=== PATIENT | male | born 1940 | race Asian ===

== ENCOUNTER → 2017-05-28 | Outpatient (CLI) | payer MEDICARE ==
[~2017-05-28] MED LIST: LISI-362 PO; PRAM15FO9 TP
[2017-05-28 16:08] LABS: PLATELET COUNT, AUTOMATED 124 K/uL (150-450)
[2017-05-28 16:19] LABS: LDL CHOLESTEROL 110 mg/dl
== END ==
LOC: LAB 15:45
PROVIDERS: ATTEND Internal Medicine
DX: Z12.5 Encounter for screening for malignant neoplasm of prostate (principal); I10 Essential (primary) hypertension; K64.9 Unspecified hemorrhoids; K65.2 Spontaneous bacterial peritonitis
CPT/HCPCS: 36415; 81001; 84443; 85025; G0103; 82040; 82247; 82310; 82374; 82435; 82465; 82565; 82947; 83718; 84075; 84132; 84153; 84155; 84295; 84450; 84460; 84478; 84520

== ENCOUNTER 2017-09-13 00:27 | Day surgery (SDC) | payer MEDICARE ==
[~2017-09-13] VITALS: Ht 175.3 cm; Wt 83.0 kg
[~2017-09-13 00:27] MED LIST changes: +DOCU-416 PO; +GOLYTE PO; +HYDR25SU51 RC; +IBUP200C74 PO
[2017-09-13] MEDS ORDERED: AMPICILLIN/SULBACT (*) 3 GM VL 3 GM in NS(*) 0.9% 100 ML BAG 100 ML IVPB ONE (06:45)
[2017-09-13] MEDS ORDERED: LIDOCAINE/SOD BICARB 8.4% SYR ID ONE (06:45)
[2017-09-13] MEDS ORDERED: FAMOTIDINE 20 MG TAB PO ONE (06:45)
[2017-09-13 07:48] VITALS: BP 189/95
[2017-09-13] MEDS: NORMOSOL R SOLN(*) 1000 ML BAG 1,000 ML IV PRN ×2 (07:48→10:52)
[2017-09-13 07:53] LABS: PLATELET COUNT, AUTOMATED 155 K/uL (150-450)
--- NOTE | 2017-09-13 08:13 | EKG ---
FACILITY: [facility] - [place] PATIENT NAME: ISSA HEREDIA : [id number] MR: [id number] V: [id number] EXAM DATE: ORDERING PHYSICIAN: MARTA STRAUSS TECHNOLOGIST: FRANKY Test Reason : PREOP-COLONOSCOPY Blood Pressure : / mmHG Vent. Rate : 062 BPM Atrial Rate : 062 BPM P-R Int : 252 ms QRS Dur : 114 ms QT Int : 430 ms P-R-T Axes : 065 -36 -27 degrees QTc Int : 436 ms Sinus rhythm with 1st degree AV block Left axis deviation Nonspecific T wave abnormality Abnormal ECG No previous ECGs available Confirmed by JAYY FLORES ([id number]) on 09/13/2017 2:58:48 PM Referred By: URIAH Confirmed By:JAYY FLORES
[2017-09-13] MEDS ORDERED: HEPARIN SOD LCK FLSH 100 UN/ML ONE (10:37)
[2017-09-13] MEDS ORDERED: NS(*) 0.9% 10 ML VIAL 20 ML ONE (10:37)
[2017-09-13] MEDS ORDERED: ROPIVACAINE 0.5% 20 ML VIAL ONE (10:37)
[2017-09-13] MEDS ORDERED: PROPOFOL EMUL(*) 10MG/ML 20 ML 40 ML ONE (10:49)
[2017-09-13] MEDS: MIDAZOLAM 2 MG/2 ML VIAL IVP PRN ×2 (10:51→12:18)
--- NOTE | 2017-09-13 13:17 | Short(Outpt) Discharge Summary ---
Discharge Summary Reason for Hosp/Final Diag: (1) Colon cancer metastasized to lung Status: Chronic Hospital Course & Plan: Right IJ Power Port and colonoscopy were completed without problems. (2) Stage IV carcinoma of colon Status: Chronic Departure Discharge to: Home, Self Care Discharge Instructions Home Meds Active Scripts Peg/Electrolytes (GOLYTELY SOLUTION) 4,000 Ml Soln, 1 GAL PO ONCE, #1 GAL 0 Refills Prov:JAYY KRUSE MD 09/08/17 Lisinopril (LISINOPRIL) 10 Mg Tablet, 10 MG PO QDAY, #30 TAB 4 Refills Prov:ASHLEE GORMAN MD 07/10/17 Reported Medications Ibuprofen (ADVIL) 200 Mg Capsule, 1-2 CAP PO Q6-8H Y for PAIN, CAPSULE 07/23/17 Discontinued Scripts Hydrocortisone Acetate (ANUSOL-HC) 25 Mg Supp.rect, 25 MG RC BID Y for pain, bleeding, #30 SUPP.RECT Prov:ASHLEE GORMAN MD 07/10/17 Docusate Sodium (COLACE) 100 Mg Capsule, 100 MG PO DAILY Y for constipation, # 30 CAPSULE Prov:ASHLEE GORMAN MD 07/10/17 Follow up Referrals: Oncology @ [facility] Dr. Phillip Garcia's (Medical Oncologist at the Cancer Center) nurse will call you in the next week or two to schedule a follow up appointment after the biopsy results are completed. Diet: Regular Activity: As Tolerated Special Instructions: You may shower starting on 09/15/17. You may leave the incisions open to air but leave the steristrips in place until they fall off on their own. Do not immerse the incisions for 2 weeks. You may see increased blood from your rectum but this should taper off over the next week. Avoid taking any NSAIDS (nonsteroidal antiinflammatory drugs such as ibuprofen, motrin, advil, aleve, naprosyn, naproxen, etc, tylenol/acetaminophen is OK) for the next week to avoid making the bleeding worse. JAYY KRUSE MD September 13, 2017 13:17
--- NOTE | 2017-09-13 13:25 | Post Operative Progress Note ---
Post Operative Progress Note Date: September 13, 2017 Time: 13:17 Surgeon: Tucker Dictation number: [id number] Anesthesia: LMA by Dr. Ramachandran Pre-Op Diagnosis: Stage IV rectal cancer with liver mets Post-Op Diagnosis: RYAN Findings: Rectal cancer from 10-18cm, 80% circumferential Procedure(s): 1) Right IJ Power Port placement 2) Colonoscopy with biopsies Specimen Removed:(May be N/A): 1) Rectal cancer Complications: None Fluids: See anesthesia record Estimated Blood Loss: Minimal Date OP Note Dictated: September 13, 2017 Time OP Note Dictated: 13:18 JAYY KRUSE MD September 13, 2017 13:25
[2017-09-13] MEDS ORDERED: hydrALAZINE HCL 20 MG/ML VIAL ONE (13:35)
[2017-09-13 14:05] VITALS: BP 186/91
--- NOTE | 2017-09-13 14:12 | RADIOLOGY IMAGING REPORT ---
FACILITY: [facility] PATIENT NAME: Maxwell Schneider : 1940 MR: [id number] V: [id number] EXAM DATE: ORDERING PHYSICIAN: JAYY KRUSE TECHNOLOGIST: Location: [facility] [place] Patient: Maxwell Schneider : 1940 Visit/Account:[id number] Date of Sevice: 09/13/2017 Exam: C-ARM FLUORO PORT/CATH Indication: PORT PLACEMENT, RAD Comparison: None available Findings: Fluoroscopy is provided for right-sided Mediport placement. Right IJ port as catheter tip at the atrial caval junction. Fluoroscopy time 44 seconds DOSE: DAP was 0.47059 mGy*m2. IMPRESSION: Fluoroscopy for Mediport placement Report Dictated By: Charly Michaud at 09/13/2017 2:03 PM Report E-Signed By: Charly Michaud at 09/13/2017 2:06 PM WSN:[email or web address]
[2017-09-13 14:19] VITALS: BP 178/80
[2017-09-13 14:20] VITALS: BP 183/109
--- NOTE | 2017-09-13 14:24 | RADIOLOGY IMAGING REPORT ---
FACILITY: [facility] PATIENT NAME: Maxwell Schneider : 1940 MR: [id number] V: [id number] EXAM DATE: ORDERING PHYSICIAN: JAYY KRUSE TECHNOLOGIST: [place] [facility] [place] Patient: Maxwell Schneider : 1940 Visit/Account:[id number] Date of Sevice: 09/13/2017 CHEST SINGLE AP INDICATION: Right IJ Power port placement COMPARISON: None available FINDINGS: The cardiac silhouette is enlarged. There is no focal infiltrate or lobar consolidation. There is no pneumothorax or pleural effusion. Right-sided Mediport is in place with catheter tip at the atrial caval junction. IMPRESSION: 1. No evidence of complication after right-sided Mediport placement Report Dictated By: Charly Michaud at 09/13/2017 2:18 PM Report E-Signed By: Charly Michaud at 09/13/2017 2:19 PM WSN:[email or web address]
--- NOTE | 2017-09-13 19:16 | OPERATIVE REPORT 1 ---
EVENT DATE: September 13, 2017 SURGEON: Modesto Ceballos MD ANESTHESIOLOGIST: Real Ramachandran MD ANESTHESIA: LMA. PREOPERATIVE DIAGNOSIS Stage IV rectal cancer. POSTOPERATIVE DIAGNOSIS Stage IV rectal cancer. PROCEDURES PERFORMED 1, Right internal jugular PowerPort placement. 2. Colonoscopy with biopsies. COMPLICATIONS None. CONDITION Stable. BLOOD LOSS Minimal. FINDINGS Patient has rectal cancer. It is about 80% circumferential and nonobstructing. It started at 10 cm from the anal verge to 18 cm from the anal verge. INDICATIONS This is a 77-year-old gentleman who initially presented to me with bright red blood per rectum, and we set him up for colonoscopy. He had a family emergency in [facility] and so went over to [facility], and while there, ended up with a colonoscopy where a rectal cancer was found, and a CT scan showed liver mets. He came back to the [facility] for treatment, and I referred him to the oncologist, who requested a PowerPort and wanted a repeat colonoscopy to get more tissue so that we could do some molecular testing of the cancer to help direct his chemotherapy. DESCRIPTION OF PROCEDURE The patient was brought to the operating room and placed supine on the operating table. LMA anesthesia was administered, and his right neck, shoulder , and chest were prepped and draped in a sterile fashion. Timeout was completed. I used the ultrasound probe to identify the right internal jugular vein, and with the patient in Trendelenburg, accessed the vein with a needle. I threaded the wire through the needle and then used the C-arm fluoroscope to identify the wire in the SVC. I then made a stab incision in the skin after anesthetizing the skin with 0.5% ropivacaine plain both in the neck and in the right infraclavicular skin. After making a stab incision in the neck, I made a transverse incision in the infraclavicular skin and dissected through the dermis and subcutaneous fat. I created a pocket for the port caudad to the incision and made sure this was hemostatic and then pulled the catheter with the tunneler from the pocket up to the stab incision in the neck. I then put the patient in Trendelenburg, threaded the dilator and sheath over the wire, and removed the wire and dilator, and then threaded the catheter through the sheath, and then removed the sheath. I put the port on the catheter after cutting it to the appropriate length and then sewed the port to the underlying muscle fascia with 3-0 nylon at the corners. I then tried to aspirate blood and flush the port, but could not aspirate any blood, and it was very difficult to flush with normal saline. I took a C-arm image of the portion of the catheter in the neck and noticed a kink. I used a hemostat through a stab incision in the neck to try to straighten the catheter out, but I was unable to. I removed the port and catheter, got a new set, and with the patient in Trendelenburg, was able to access the vein again and then perform the exact same procedure with a new set-up and then secured the port to the underlying muscle fascia, and at this point, was easily able to aspirate blood and flush the port with saline and then 500 units of heparinized saline for a total of 5 mL. I then took some more C-arm images, and there were no kinks or twists, and the tip was in the SVC. I closed the stab incision in the neck with 3-0 chromic interrupted sutures, and then the skin in the infraclavicular incision was closed with interrupted 3-0 Vicryl deep dermal sutures and 4-0 Monocryl running subcuticular suture. Skin was cleaned and dried, and Steri-Strips were applied, followed by sterile surgical dressings. The patient was then placed in the left lateral decubitus position. The colonoscope was set up, and a digital rectal exam was completed which was unremarkable. The colonoscope was lubricated and inserted into the patient's anus and then advanced to the cecum and also into the terminal ileum with no problems. I slowly withdrew the scope as I looked at all mucosal surfaces for any abnormalities. He had a small cecal polyp, and there were two other polyps, one at about the hepatic flexure and one in the descending colon, but I left these alone. I wanted to minimize any seeding of bacteria into the blood stream given the port that I just placed. I then inspected the cancer in the mid rectum, and using the colonoscope, it started at about 10 cm from the anal verge and went up to about 18 cm from the anal verge. I then took several samples using the snare, and these were captured in the trap and sent to Pathology with the orders from Dr. Mendoza for all the tissue testing that he requested. When the tip was in the rectum, I retroflexed and looked at the distal rectum, and there were no other lesions. The scope was straightened out and then withdrawn from the patient. He was awakened and the LMA removed. He was transported to the recovery room in stable condition having tolerated the procedure without any apparent problems. AMADOR
== END 2017-09-13 14:05 | disposition home or self-care (01) ==
LOC: OR 00:27
PROVIDERS: ATTEND Surgery
DX: C20 Malignant neoplasm of rectum (principal); I10 Essential (primary) hypertension; K63.5 Polyp of colon
CPT/HCPCS: 00811; 36415; 36561; 45385; 71045; 77001; 85025; 88305; 88344; 93005; A9270; C1788; J0295; J0360; J1642; J2250; J2704; J2795; J7050; 82310; 82374; 82435; 82565; 82947; 84132; 84295; 84520

== ENCOUNTER 2017-11-26 09:45 | Outpatient (RCR) | payer MEDICARE ==
--- NOTE | 2017-10-30 15:20 | PT INITIAL EVALUATION ---
MEDICAL DIAGNOSIS: Metastatic Colon CA TREATMENT DIAGNOSIS: Metastatic Colon CA DATE OF ONSET: 10/01/17 SUBJECTIVE: Mr. 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 Pt is currently being treated with FOLFOX since 10/01/2017 and tolerating chemotherapy treatment very well. Pt is on his third round of chemo at the time of oncology rehab evaluation with minimal side- effects. Pt is to receive education today per PT on physical side-effects of chemo regime as well as secondary to diagnosis. Pt current reported problems are pain with bowel movement which appears to be improving and occasional constipation and pressure. REHAB PROBLEM LIST: Increased Pain Decreased Strength Decreased Function Decreased ADL's PREVIOUS MEDICAL HISTORY: See EMR OBJECTIVE: Posture: Pt has slight forward head posture but otherwise is unremarkable. Strength: LE MMT: All 5/5 excluding B ankle PF at 4+/5. Sensation: Pt reports occasional cold induced sensory neuropathy associated with Oxaliplatin, otherwise no sensory deficits or pain. Special Tests: FACT-G: PWB: , SWB: 18.7, EWB: , FWB: , Total: 82.7/108 Mobility: ECOG Performance Status: Grade 2 ASSESSMENT: Pt shows signs and symptoms consistent with colon cancer dx and treatment. Physical therapy is indicated for this patient to address the above listed deficits and improve function with ADL's and decrease pain with ongoing oncological treatment. Short Term Goals In 2 MO pt will maintain ECOG performance status at grade 2 for maintained function with ADL's and decreased complications with ongoing oncological treatment. In 2 MO pt will improve FACT-G score to >84/108 for improved function with ADL' s and overall well-being status. In 4 MO pt will maintain ECOG performance status at grade 2 for maintained function with ADL's and decreased complications with ongoing oncological treatment. In 4 pt will improve FACT-G score to >84/108 for improved function with ADL's and overall well-being status. In 4 MO pt will maintain LE strength of > >4+/5 for maintained function with ADL's. Patient's Goals Maintain function with ADL's. PLAN: Patient to be seen for Manual Therapy/STM/MET Strengthening/condition Ice/Heat Range of Motion Ultrasound Stretching Neuromuscular Re-ed Closed Chain Program Posture/Body mechanics Gait Trg/Balance Trg Home Exercise Program [facility]./Manual Traction Therapeutic Activities Pelvic Floor 1x/MO for 4 Months If you have any questions, comments, or concerns about this report or plan, please contact me at . Thank you, Stacie Juarez, PT, DPT, CLT MTDD
== END 2017-11-26 18:00 | disposition home or self-care (01) ==
LOC: PT 09:45
PROVIDERS: ATTEND Nurse Practitioner Family
DX: C18.9 Malignant neoplasm of colon, unspecified (principal); C78.00 Secondary malignant neoplasm of unspecified lung
CPT/HCPCS: 97161

== ENCOUNTER 2017-12-03 10:02 | Outpatient (RCR) | payer MEDICARE ==
[2017-09-06 15:46] VITALS: BP 166/100
--- NOTE | 2017-09-06 20:37 | ONCOLOGY CONSULTATION ---
EVENT DATE: September 06, 2017 REFERRING PHYSICIAN Modesto Ceballos MD PRIMARY CARE Olayinka Dodge MD REASON FOR CONSULTATION Evaluation and management of metastatic colorectal cancer with lung metastasis. HISTORY OF PRESENT ILLNESS Patient is a 77-year-old Vincentian male who presented with rectal bleeding and lower abdominal pain lately and patient was planned to have a colonoscopy done by Dr. Ceballos, but patient had an issue with emergency in [facility] so he left the [facility] without having the colonoscopy done here in [place]. But he did a colonoscopy there in [facility], and the colonoscopy was done on August 17, 2017 which showed four polyps in the ascending colon and one polyp in the hepatic flexure, and all came back positive for tubular adenoma. There was a mass at the rectosigmoid junction and the biopsy of this mass came back positive for moderately differentiated adenocarcinoma. After he returned back from [facility], patient visited with Dr. Ceballos, who requested a PET/CT scan which was done on September 06, 2017, and the PET/CT scan showed numerous metabolically active parenchymal lung metastases throughout both lungs. There was also irregular locally invasive rectal tumor associated with internal iliac and perirectal lymphadenopathy. The largest circumferential rectal mass demonstrated SUV of 10.8 and left-sided dominant araceli metastasis demonstrated SUV of 5.5. There is no definite hepatic metastasis. PAST MEDICAL HISTORY Significant for hypertension. PAST SURGICAL HISTORY Insignificant. FAMILY HISTORY Sister with breast cancer. SOCIAL HISTORY Patient is with two children. 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 He quit smoking 20-30 years ago after less than one pack a day for about 10 years. He drinks about three to four beers at least per week. Denies any abuse of illicit drugs. CURRENT MEDICATIONS 1. Anusol 25 mg suppository b.i.d. 2. Colace 100 mg daily. 3. Lisinopril 10 mg daily. ALLERGIES No known drug allergies. REVIEW OF SYSTEMS CONSTITUTIONAL: No appetite or weight change. No fever, chills. He has night sweats sometimes which are mild. No recent infection. HEENT: Ears: No tinnitus or hearing problem. Nose: No nasal discharge or epistaxis. Throat: No sore throat or mouth ulcers. Eyes: No diplopia or visual changes. RESPIRATORY: He has exertional shortness of breath. No cough, expectoration or hemoptysis. CARDIOVASCULAR: No chest pain, orthopnea, or paroxysmal nocturnal dyspnea (PND) . No edema. No palpitations. GASTROINTESTINAL: No nausea or vomiting. No diarrhea or constipation. No change in bowel movements. No heartburn or swallowing difficulties. No jaundice. No hematemesis, melena. He has occasional rectal bleeding and lower abdominal pain sometimes. GENITOURINARY: No hematuria or dysuria. MUSCULOSKELETAL: No pain in the muscles, joints or bones. NEUROLOGICAL: No tingling or numbness in the hands or feet. No headaches or convulsions. HEMATOLOGIC/LYMPHATIC: No bleeding or easy bruising. No weakness or fatigue. No enlarged lymph nodes. SKIN: No skin rash or lumps. PSYCHIATRIC: No anxiety or depression. PHYSICAL EXAMINATION GENERAL: Looks stable. Well-developed, well-nourished, and in no acute distress. VITAL SIGNS: Blood pressure 166/100, pulse 78 per minute, respirations 16 per minute, temperature 97, pulse ox 90% on room air. HEENT: Head: Atraumatic. No sinus tenderness to palpation. Eyes: No icterus or conjunctivitis. Mouth and Throat: No oral thrush or mucositis. NECK: Supple. No cervical or supraclavicular lymphadenopathy. LUNGS: Clear to auscultation and percussion bilaterally. HEART: Regular rate and rhythm. No gallops, murmurs, clicks or rubs. ABDOMEN: Soft and lax. No tenderness. No hepatosplenomegaly. No masses. EXTREMITIES: No cyanosis, clubbing or edema. LYMPHATICS: No peripheral lymphadenopathy. NEUROLOGICAL: Conscious, alert and oriented times three. No focal motor or sensory deficits. PSYCHIATRIC: Mood and affect appear normal. SKIN: No skin rash, bruise or purpuric eruption. ASSESSMENT 1. 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 Patient had a colonoscopy done in [facility] on August 17, 2017 and four polyps from the ascending colon and one polyp from the hepatic flexure all came back positive for tubular adenoma. There was a mass at the rectosigmoid junction and a biopsy of this mass came back positive for moderately differentiated adenocarcinoma. PET/CT scan done on September 06, 2017 did reveal the presence of numerous metabolically active parenchymal metastases throughout both lungs. The irregular locally invasive rectal tumor associated with internal iliac and perirectal lymphadenopathy was also noted. There is no hepatic metastasis. Given this information I am planning to await the placement of central port by Dr. Ceballos which is scheduled next week. I will ask Dr. Ceballos also to do a sigmoidoscopy with biopsy of the rectal mass again in order to run the molecular markers from the tumor like NRAS, KRAS and BRAF and microsatellite instability high to decide about further treatment. If the patient is KRAS and NRAS, BRAF wild type then he will be eligible for Erbitux or Vectibix, but if not then I will use targeted therapy with Avastin together with chemotherapy with FOLFOX. If the patient proves to have microsatellite instability high then he will be eligible for treatment with checkpoint inhibitor like Keytruda, and for this reason biopsy is very important in order to know this information to decide about further management. I explained that to the patient and he is agreeable with the plan of management. I am planning to see him a week after his biopsy to decide about the treatment. 2. Hypertension on treatment. PLAN 1. Await the port placement by Dr. Ceballos. 2. Ask Dr. Ceballos to do a sigmoidoscopy with biopsy of the tumor tissue for NRAS, KRAS, BRAF and microsatellite instability high. 3. Further evaluation and management will depend on the result of the molecular markers. 4. Patient to return after the biopsy for further evaluation and management. 5. Patient to contact us for any new concerns or complaints. MTDD
[2017-09-27 14:38] VITALS: BP 177/85
--- NOTE | 2017-09-27 20:29 | ONCOLOGY FOLLOW UP NOTE ---
EVENT DATE: September 27, 2017 DIAGNOSES 1. Stage IV colorectal cancer. 2. Pulmonary metastasis involving both lungs. 3. Hypertension. CHIEF COMPLAINT Patient is here today for followup of his metastatic colon cancer. ONCOLOGY HISTORY Patient is a 77-year-old Samoan male who presented with rectal bleeding and lower abdominal pain lately and patient was planned to have a colonoscopy done by Dr. Ceballos, but patient had an issue with emergency in [facility] so he left the [facility] without having the colonoscopy done here in [place]. But he did a colonoscopy there in [facility], and the colonoscopy was done on August 17, 2017 which showed four polyps in the ascending colon and one polyp in the hepatic flexure, and all came back positive for tubular adenoma. There was a mass at the rectosigmoid junction and the biopsy of this mass came back positive for moderately differentiated adenocarcinoma. After he returned back from [facility], patient visited with Dr. Ceballos, who requested a PET/CT scan which was done on September 06, 2017, and the PET/CT scan showed numerous metabolically active parenchymal lung metastases throughout both lungs. There was also irregular locally invasive rectal tumor associated with internal iliac and perirectal lymphadenopathy. The largest circumferential rectal mass demonstrated SUV of 10.8 and left-sided dominant araceli metastasis demonstrated SUV of 5.5. There is no definite hepatic metastasis. Patient had biopsy of the rectal mass by Dr. Ceballos on September 13, 2017, and the pathology came back positive for invasive colonic adenocarcinoma. Pathological markers with NRAS, KRAS, BRAF and microsatellite instability high are still pending. HISTORY OF PRESENT ILLNESS Patient is here today for followup of his metastatic colon cancer. He is complaining of nasal discharge. He continues to have rectal bleeding and melena. He is weak, tired and fatigued. PAST MEDICAL HISTORY Significant for hypertension. PAST SURGICAL HISTORY Insignificant. FAMILY HISTORY Sister with breast cancer. SOCIAL HISTORY Patient is with two children. 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 He quit smoking 20-30 years ago after less than one pack a day for about 10 years. He drinks about three to four beers at least per week. Denies any abuse of illicit drugs. CURRENT MEDICATIONS 1. Anusol 25 mg suppository b.i.d. 2. Colace 100 mg daily. 3. Lisinopril 10 mg daily. ALLERGIES No known drug allergies. REVIEW OF SYSTEMS CONSTITUTIONAL: No appetite or weight change. No fever, chills or sweating. No recent infection. HEENT: Ears: No tinnitus or hearing problem. Nose: He has nasal discharge. No epistaxis. Throat: No sore throat or mouth ulcers. Eyes: No diplopia or visual changes. RESPIRATORY: No shortness of breath. No cough, expectoration or hemoptysis. CARDIOVASCULAR: No chest pain, orthopnea, or paroxysmal nocturnal dyspnea (PND) . No edema. No palpitations. GASTROINTESTINAL: No nausea or vomiting. No diarrhea or constipation. No change in bowel movements. No heartburn or swallowing difficulties. No abdominal pain. No jaundice. No hematemesis. He has rectal bleeding and melena. GENITOURINARY: No hematuria or dysuria. MUSCULOSKELETAL: No pain in the muscles, joints or bones. NEUROLOGICAL: No tingling or numbness in the hands or feet. No headaches or convulsions. HEMATOLOGIC/LYMPHATIC: No bleeding or easy bruising. He is weak, tired and fatigued. No enlarged lymph nodes. SKIN: No skin rash or lumps. PSYCHIATRIC: No anxiety or depression. PHYSICAL EXAMINATION GENERAL: Looks stable. Well-developed, well-nourished, and in no acute distress. VITAL SIGNS: Blood pressure 177/85, pulse 75 per minute, respirations 16 per minute, temperature 97.1, pulse ox 90% on room air. HEENT: Head: Atraumatic. No sinus tenderness to palpation. Eyes: No icterus or conjunctivitis. Mouth and Throat: No oral thrush or mucositis. NECK: Supple. No cervical or supraclavicular lymphadenopathy. LUNGS: Clear to auscultation and percussion bilaterally. HEART: Regular rate and rhythm. No gallops, murmurs, clicks or rubs. ABDOMEN: Soft and lax. No tenderness. No hepatosplenomegaly. No masses. EXTREMITIES: No cyanosis, clubbing or edema. LYMPHATICS: No peripheral lymphadenopathy. NEUROLOGICAL: Conscious, alert and oriented times three. No focal motor or sensory deficits. PSYCHIATRIC: Mood and affect appear normal. SKIN: No skin rash, bruise or purpuric eruption. DIAGNOSTIC DATA CBC showed white count 8.3, hemoglobin 16.8, hematocrit 49.1, platelet 155,000. Rectal mass biopsy done on September 13, 2017 was positive for invasive colonic adenocarcinoma. Pathological markers are still pending. ASSESSMENT 1. 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 The patient had a colonoscopy done in [facility] August 17, 2017 and four polyps from the ascending colon and one polyp from the hepatic flexure all came back positive for tubular adenoma. There was a mass at the rectosigmoid junction and a biopsy of this mass came back positive for moderately differentiated adenocarcinoma. PET CT scan done September 06, 2017 did reveal the presence of numerous metabolically active parenchymal metastases throughout both lungs. The irregularly local invasive rectal tumor associated with internal iliac perirectal lymphadenopathy was also noted. There is no hepatic metastasis. Patient has been evaluated by Dr. Ceballos, who placed a central port and who did sigmoidoscopy and biopsy of the rectal mass done on September 13, 2017, and the pathology came back positive for invasive colonic adenocarcinoma. Pathological markers with KRAS, NRAS, BRAF and microsatellite instability high are still pending. Given that the patient is very anxious to start his chemotherapy, I am planning to start chemotherapy with FOLFOX on October 01, 2017, until we get the results of those pathological markers and decide about targeted therapy for his treatment. I explained that to the patient. He is agreeable with the plan of management. I will see him two weeks from now with CBC, chem panel, CEA. I will check CBC, chemistry panel weekly after his chemotherapy, and I will administer Neulasta 6 mg on day three of each cycle. 2. Hypertension, on treatment. PLAN 1. FOLFOX cycle number one to start on October 01, 2017. 2. CBC, chem panel to be checked weekly. 3. Patient to return in two weeks with CBC, chem panel, CEA. 4. Neulasta 6 mg subcutaneously day three. 5. Patient to contact us for any new concerns or complaints. MTDD
[2017-10-01 09:44] VITALS: BP 157/77
[2017-10-01] MEDS: HEPARIN FLSH (PORT) 500 UN/5ML IVP PRN (11:03)
[2017-10-01] MEDS: LIDOCAINE/SOD BICARB 8.4% SYR ID PRN (11:03)
[2017-10-01] MEDS: NS(*) 0.9% 500 ML BAG 500 ML IV PRN (11:03)
[2017-10-01] MEDS: DEXAMETHASONE SOD PHOS 10MG/ML IVP PRN (11:08)
[2017-10-01] MEDS: PALONOSETRON 0.25 MG/5 ML VIAL IVP PRN (11:09)
[2017-10-01 15:36] VITALS: BP 156/90
[2017-10-03] MEDS: HEPARIN FLSH (PORT) 500 UN/5ML IVP PRN (14:27)
[2017-10-03 14:36] VITALS: BP 148/99
[2017-10-08 09:30] VITALS: BP 128/77
[2017-10-08 09:52] LABS: PLATELET COUNT, AUTOMATED 77 K/uL (150-450)
[2017-10-11 12:02] VITALS: BP 156/82
--- NOTE | 2017-10-11 21:28 | [facility] ONCOLOGY NOTE ---
EVENT DATE: October 11, 2017 DIAGNOSES 1. Stage IV colorectal cancer. 2. Pulmonary metastasis involving both lungs. 3. Hypertension. CHIEF COMPLAINT Patient is here today for his followup for his metastatic colon cancer. ONCOLOGY HISTORY Patient is a 77-year-old Bulgarian male who presented with rectal bleeding and lower abdominal pain lately and patient was planned to have a colonoscopy done by Dr. Ceballos, but patient had an issue with emergency in [facility] so he left the [facility] without having the colonoscopy done here in [place]. But he did a colonoscopy there in [facility], and the colonoscopy was done on August 17, 2017 which showed four polyps in the ascending colon and one polyp in the hepatic flexure, and all came back positive for tubular adenoma. There was a mass at the rectosigmoid junction and the biopsy of this mass came back positive for moderately differentiated adenocarcinoma. After he returned back from [facility], patient visited with Dr. Ceballos, who requested a PET/CT scan which was done on September 06, 2017, and the PET/CT scan showed numerous metabolically active parenchymal lung metastases throughout both lungs. There was also irregular locally invasive rectal tumor associated with internal iliac and perirectal lymphadenopathy. The largest circumferential rectal mass demonstrated SUV of 10.8 and left-sided dominant araceli metastasis demonstrated SUV of 5.5. There is no definite hepatic metastasis. Patient had biopsy of the rectal mass by Dr. Ceballos on September 13, 2017, and the pathology came back positive for invasive colonic adenocarcinoma. Pathological markers with NRAS, KRAS, BRAF and microsatellite instability high are still pending. Patient started treatment with FOLFOX on 01 October 2017. HISTORY OF PRESENT ILLNESS The patient is here today for followup his metastatic colon cancer. He is tolerating chemotherapy very well. He started his chemotherapy on 01 October 2017. He has some constipation, responding well to stool softener. He is weak , tired, and fatigued, but other than that, he is really doing very well. He denies any neurological symptoms. PAST MEDICAL HISTORY Significant for hypertension. PAST SURGICAL HISTORY Insignificant. FAMILY HISTORY Sister with breast cancer. SOCIAL HISTORY Patient is with two children. 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 He quit smoking 20-30 years ago after less than one pack a day for about 10 years. He drinks about three to four beers at least per week. Denies any abuse of illicit drugs. CURRENT MEDICATIONS 1. Anusol 25 mg suppository b.i.d. 2. Colace 100 mg daily. 3. Lisinopril 10 mg daily. ALLERGIES No known drug allergies. REVIEW OF SYSTEMS CONSTITUTIONAL: No appetite or weight change. No fever, chills or sweating. No recent infection. HEENT: Ears: No tinnitus or hearing problem. Nose: No nasal discharge or epistaxis. Throat: No sore throat or mouth ulcers. Eyes: No diplopia or visual changes. RESPIRATORY: No shortness of breath. No cough, expectoration or hemoptysis. CARDIOVASCULAR: No chest pain, orthopnea, or paroxysmal nocturnal dyspnea (PND) . No edema. No palpitations. GASTROINTESTINAL: No nausea or vomiting. He has constipation, using stool softener. No heartburn or swallowing difficulties. No abdominal pain. No jaundice. No hematemesis, melena or rectal bleeding. GENITOURINARY: No hematuria or dysuria. MUSCULOSKELETAL: No pain in the muscles, joints or bones. NEUROLOGICAL: No tingling or numbness in the hands or feet. No headaches or convulsions. HEMATOLOGIC/LYMPHATIC: No bleeding or easy bruising. He has weakness, tiredness, and fatigue. No enlarged lymph nodes. SKIN: No skin rash or lumps. PSYCHIATRIC: No anxiety or depression. PHYSICAL EXAMINATION GENERAL: Looks stable. Well developed, well nourished, and in no acute distress. VITAL SIGNS: Blood pressure 156/82, pulse 66 per minute, respirations 16 per minute, temperature 97.3, pulse oximetry 90% on room air. HEENT: Head: Atraumatic. No sinus tenderness to palpation. Eyes: No icterus or conjunctivitis. Mouth and throat: No oral thrush or mucositis. NECK: Supple. No cervical or supraclavicular lymphadenopathy. LUNGS: Clear to auscultation and percussion bilaterally. HEART: Regular rate and rhythm. No gallops, murmurs, clicks or rubs. ABDOMEN: Soft and lax. No tenderness. No hepatosplenomegaly. No masses. EXTREMITIES: No cyanosis, clubbing or edema. LYMPHATICS: No peripheral lymphadenopathy. NEUROLOGICAL: Conscious, alert and oriented times three. No focal motor or sensory deficits. PSYCHIATRIC: Mood and affect appear normal. SKIN: No skin rash, bruise or purpuric eruption. DIAGNOSTIC/LABORATORY STUDIES Chem panel is totally normal. CEA was 3.5. ASSESSMENT 1. 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 Patient had a colonoscopy done in [place] August 12, 2017, and four polyps from the ascending colon and one polyp from the hepatic flexure all came back positive for tubular adenoma. There was a mass at the rectosigmoid junction, and the biopsy of this mass came back positive for moderately differentiated adenocarcinoma. PET CT scan done September 06, 2017, did reveal the presence of numerous metabolic-reactive parenchymal metastases throughout both lungs. The irregularly local invasive rectal tumor associated with internal iliac, perirectal lymphadenopathy was also noted. There is no hepatic metastasis. Patient has been evaluated by Dr. Ceballos, who placed a central port and who did the sigmoidoscopy and the biopsy of the rectal mass done September 13, 2017. The pathology came back positive for invasive colonic adenocarcinoma. Pathological markers with KRAS, NRAS, BRAF, and microsatellite stability high were done. Patient has started chemotherapy with FOLFOX October 01, 2017. I am planning to review the pathological markers to decide about targeted therapy besides FOLFOX. He is tolerating treatment very well. His pre-chemotherapy CEA was 3.5. I am planning to proceed with his second cycle on 15 October 2017. Patient will receive Neulasta after each cycle of chemotherapy on day three. I will see him in two weeks with CBC, chem panel, and CEA prior to the next cycle of chemotherapy. 2. Hypertension, on treatment. 3. Chemotherapy-induced thrombocytopenia. Current platelet count 77,000. Will continue to monitor. PLAN 1. FOLFOX cycle #2 if his CBC allows on 15 October 2017. 2. CBC, chem panel to be checked weekly. 3. Patient to return in two weeks with CBC, chem panel, CEA. 4. Neulasta 6 mg subcutaneously after chemotherapy on day #3. 5. Patient to contact us for any new concern or complaints. MTDD
[2017-10-15 09:12] VITALS: BP 172/109
[2017-10-15] MEDS: LIDOCAINE/SOD BICARB 8.4% SYR ID PRN (11:03)
[2017-10-15] MEDS: PALONOSETRON 0.25 MG/5 ML VIAL IVP PRN (11:03)
[2017-10-15] MEDS: DEXAMETHASONE SOD PHOS 10MG/ML IVP PRN (11:03)
[2017-10-15] MEDS: DEXTROSE 5%(*) 100 ML BAG 100 ML IVPB PRN (14:51)
[2017-10-15] MEDS: NS(*) 0.9% 500 ML BAG 500 ML IV PRN (16:22)
--- NOTE | 2017-10-15 17:10 | Medical Nutrition Therapy ---
Nutrition Anthropometrics Height (Inches): 66.50 Height (Calculated Centimeters: 168.9100 Weight (Pounds): 183 Hx Weight Loss: Yes (pt states he has lost ~7lbs in one month ) Nutritional Diagnosis Nutritional Risk Acuity 2: Head/Neck/GI Cancer (metastatic colorectal cancer with lung metastasis ) Nutritional Acuity: 2-Moderate Energy Requirement: 2500 Protein Requirement: 83 Fluid Requirement: 2100 Nutritional Education Nutrition Education Topic: Other (nutrition during cancer treatment ) Learning Readiness: Interested Teaching Methods: Discussion, Handout Response to Teaching: Verbalize understanding Teaching Recipient: Patient Nutrition Counseling: Reviewed handout on Eating Hints During Cancer Treatment and managing nutrition impact symptoms. Nutrition Monitoring & Eval Nutrition Goals: Eat 90-100% Meal, Drink > 2 liters/day Nutritional Goals Comment: patient encouraged to maintain adequate intake to minimize wt loss RD Patient Assessment Time: [address] Assessment Type: RD Education Patient Nutrition Acuity: 2-Moderate Nutritional Comment: provided less than 15 minutes of nutrition education I will monitor nutrition impact symptoms and provide additional education and recommendations as needed ELSY LOUIS RDN, REINA Oct 15, 2017 17:10
--- NOTE | 2017-10-15 18:35 | Oncology Note ---
EVALUATION~DATE~& TIME: PRIMARY CARE PHYSICIAN: None on file LAST SEEN BY DR. Garcia October 11, 2017 ACCOMPANIED BY: Self CHIEF COMPLAINT; FOLFOX cycle #2 Treatment for his metastatic colon cancer. HISTORY OF PRESENT ILLNESS Mr. Wyatt Arreola is a 77-year-old Bangladeshi man who has Stage IV colorectal cancer with pulmonary metastases involving both lungs biopsy proven of the rectal mass done on September 13, 2017. Currently being treated with FOLFOX since 02/2018 and tolerating chemotherapy treatment very well with minimal toxicities. Patient is seen and examined in the infusion clinic for his cycle32 of FOLFOX. He is hemodynamically stable except SBP>160 for which he forgot to take his lisinopril this am. Patient informs me that he is in his usual state of health and apart from some fatigue, minimal rectal bleeding and rectal pain which has significantly improved after last chemo round. He denies nausea, vomiting, abdominal pain, cardiac type chest pain, and no changes in his bowel, bladder pattern, no changes in appetite. He uses suppository and stool softener as prescribed. DIAGNOSES 1. Stage IV colorectal cancer. 2. Pulmonary metastasis involving both lungs. 3. Hypertension. on Lisinopril 4. Chemo Induced Thrombocytopenia ONCOLOGY HISTORY Patient is a 77-year-old Bangladeshi male who presented with rectal bleeding and lower abdominal pain lately and patient was planned to have a colonoscopy done by Dr. Ceballos, but patient had an issue with emergency in [facility] so he left the [facility] without having the colonoscopy done here in [place]. But he did a colonoscopy there in [facility], and the colonoscopy was done. - August 17, 2017 which showed four polyps in the ascending colon and one polyp in the hepatic flexure, and all came back positive for tubular adenoma. There was a mass at the rectosigmoid junction and the biopsy of this mass came back positive for moderately differentiated adenocarcinoma. After he returned back from [facility] - September 06, 2017,patient visited with Dr. Ceballos, who requested a PET/CT scan which was done and the PET/CT scan showed numerous metabolically active parenchymal lung metastases throughout both lungs. There was also irregular locally invasive rectal tumor associated with internal iliac and perirectal lymphadenopathy. The largest circumferential rectal mass demonstrated SUV of 10.8 and left- sided dominant araceli metastasis demonstrated SUV of 5.5. There is no definite hepatic metastasis. - on September 13, 2017 patient had biopsy of the rectal mass by Dr. Ceballos , and the pathology came back positive for invasive colonic adenocarcinoma. Pathological markers with NRAS, KRAS, BRAF and microsatellite instability high are still pending. - FOLFOX cycle # on October 01, 2017 - FOLFOX cycle #2 on 15 October 2017 - - 10/08/17 CEA was 3.5. PAST MEDICAL HISTORY Significant for hypertension. PAST SURGICAL HISTORY Insignificant. FAMILY HISTORY Sister with breast cancer. SOCIAL HISTORY Patient is with two children. 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 He quit smoking 20-30 years ago after less than one pack a day for about 10 years. He drinks about three to four beers at least per week. Denies any abuse of illicit drugs. CURRENT MEDICATIONS 1. Anusol 25 mg suppository b.i.d. 2. Colace 100 mg daily. 3. Lisinopril 10 mg daily. 4. Ibuprofen ALLERGIES No known drug allergies. CONSTITUTION: denies fevers, sweats, change in appetite, energy, or weight EYES: No blurred vision, no double vision ENT: no mouth soreness, trouble swallowing, neck masses RESPIRATORY: Denies pleuritic pain, dyspnea, wheezing, coughing CARDIOVASCULAR: Denies cardiac type chest pain, palpitations, leg edema GI: denies trouble swallowing, indigestion, abdominal pain, diarrhea, constipation, : No blood in the urine, no urinary urgency/frequency, no dysuria,+rectal pain ,+rectal bleeding improving MUSCULOSKELETAL: no joint pain, no muscle pain, no limited ROM, no back pain NEURO: denies headaches, dizziness, neuropathy, focal weakness SKIN: denies bruising, rashes, changing or suspicious lesions, HEMATOLOGY: denies spontaneous bleeding, denies non-palpable nodes PSYCH: denies mood changes, depression, anxiety PHYSICAL EXAM Vital Signs Temperature: 96.8 Pulse: 66 BP Systolic: 172 BP Diastolic: 109 Respiratory Rate: 16 O2 SAT: 93 RA O2 Delivery: . PERFORMANCE STATUS: ECOG O- fully active, able to carry on all pre-disease performance w/o restriction GENERAL: pleasant conversant, in no apparent distress ORAL: mucosa moist without lesions, pharynx not injected EYES: no icterus, no pale conjunctivae, EOMI, PERRLA NECK: supple, no masses, no palpable lymph nodes LUNGS: clear to auscultation bilaterally, breathing, non-labored CVS: regular rate, rhythm, nl s1, s2, no murmurs ABD: normal bowel sounds, soft non tender, non-distended, no hepatomegaly, no splenomegaly, no masses EXTREMITIES: no edema, no cyanosis MUSCULOSKELETAL: grossly normal gait, range of motion stable NEURO: alert, appropriate, motor grossly normal, sensory grossly non focal, and cranial nerves grossly intact NODES: no cervical, supraclavicular, axillary, inguinal adenopathy SKIN: no ecchymosis, petechiae, no open wounds, no itchiness. PSYCH: normal mood and affect, good judgment and insight. Assessment & Plan DIAGNOSTIC DATA CBC showed a white count of 9.8, hemoglobin 15.9, hematocrit 46.3, platelets 83.0. Chem panel totally normal except random glucose of 150. DIAGNOSTIC/LABORATORY STUDIES Chem panel is totally normal. CEA was 3.5. on 10/08/17 ASSESSMENT 1. 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 Patient had a colonoscopy done in [facility] August 12, 2017, and four polyps from the ascending colon and one polyp from the hepatic flexure all came back positive for tubular adenoma. There was a mass at the rectosigmoid junction, and the biopsy of this mass came back positive for moderately differentiated adenocarcinoma. PET CT scan done September 06, 2017, did reveal the presence of numerous metabolic-reactive parenchymal metastases throughout both lungs. The irregularly local invasive rectal tumor associated with internal iliac, perirectal lymphadenopathy was also noted. There is no hepatic metastasis. Patient has been evaluated by Dr. Ceballos, who placed a central port and who did the sigmoidoscopy and the biopsy of the rectal mass done September 13, 2017. The pathology came back positive for invasive colonic adenocarcinoma. Pathological markers with KRAS, NRAS, BRAF, and microsatellite stability high were done. Patient has started chemotherapy with FOLFOX October 01, 2017. I am planning to review the pathological markers to decide about targeted therapy besides FOLFOX. He is tolerating treatment very well. His pre-chemotherapy CEA was 3.5. I am planning to proceed with his second cycle on 15 October 2017. Patient will receive Neulasta after each cycle of chemotherapy on day three. I will see him in two weeks with CBC, chem panel, and CEA prior to the next cycle of chemotherapy. 2. Hypertension. Patient was re-educated to take his blood pressure medications lisinopril as he informs me that he did not think he needed to take it. 3. Chemotherapy-induced thrombocytopenia. Current platelet count 83,000. Will continue to monitor. Patient reports that her rectal pain and bleeding is significantly improving after last round of chemotherapy. He also informs me that he is feeling much better, and that he takes 2 Advil every night after BM for recta pain that lasts approximately 30minutes. PLAN 1. FOLFOX cycle #2 on 15 October 2017. Will monitor counts closely. 1a. Please admin 10mg Lisinopril Po x1 now for a SBP>160. 2. CBC, chem panel to be checked on Sunday10/19/17 3. Patient to Stop taking Advil for now. 4. Patient May take OTC Tylenol up to 4 tabs PO daily for rectal pain PRN. 3. Patient to return resume lab checks Q two weeks with CBC, chem panel, CEA. 4. Neulasta 6 mg subcutaneously after chemotherapy on day #3. 5. Patient to contact us for any new concern or complaints. TIME SPENT: 25 minutes > 20 minutes includes but not limited to discussion, counselling and co-ordination~ of care. Discussion with other health care providers, record review, review of lab work, diagnostic tests. Plan discussed extensively with patient. All the questions answered today. Thank you for the opportunity to be involved in the care of Maxwell Vargas. Billing Level: Return visit 4 MICKIE SHIELDS, ONC Oct 15, 2017 18:35
[2017-10-17] MEDS: HEPARIN FLSH (PORT) 500 UN/5ML IVP PRN (14:48)
[2017-10-17 16:07] VITALS: BP 137/84
[2017-10-19 09:38] VITALS: BP 112/69
[2017-10-19 09:42] LABS: PLATELET COUNT, AUTOMATED 92 K/uL (150-450)
[2017-10-22 09:12] VITALS: BP 149/83
[2017-10-22 09:23] LABS: PLATELET COUNT, AUTOMATED 94 K/uL (150-450)
[2017-10-29 11:29] VITALS: BP 150/92
[2017-10-29] MEDS: PALONOSETRON 0.25 MG/5 ML VIAL IVP PRN (11:59)
[2017-10-29] MEDS: DEXTROSE 5%(*) 100 ML BAG 100 ML IVPB PRN (12:00)
[2017-10-29] MEDS: NS(*) 0.9% 500 ML BAG 500 ML IV PRN (12:00)
[2017-10-29] MEDS: DEXAMETHASONE SOD PHOS 10MG/ML IVP PRN (12:00)
[2017-10-29 17:15] VITALS: BP 173/93
--- NOTE | 2017-10-30 13:03 | Oncology Progress Note ---
History of Present Illness Evaluation Evaluation Date: Oct 29, 2017 Evaluation Time: 12:00 Chief Complaint Chief Complaint f/u FOLFOX cycle #3 Treatment for his metastatic colon cancer Oncology History Oncology History Patient is a 77-year-old [place] male who presented with rectal bleeding and lower abdominal pain lately and patient was planned to have a colonoscopy done by Dr. Ceballos, but patient had an issue with emergency in [facility] so he left the [facility] without having the colonoscopy done here in [place]. But he did a colonoscopy there in [facility], and the colonoscopy was done. - August 17, 2017 which showed four polyps in the ascending colon and one polyp in the hepatic flexure, and all came back positive for tubular adenoma. There was a mass at the rectosigmoid junction and the biopsy of this mass came back positive for moderately differentiated adenocarcinoma. After he returned back from [facility] - September 06, 2017,patient visited with Dr. Ceballos, who requested a PET/CT scan which was done and the PET/CT scan showed numerous metabolically active parenchymal lung metastases throughout both lungs. There was also irregular locally invasive rectal tumor associated with internal iliac and perirectal lymphadenopathy. The largest circumferential rectal mass demonstrated SUV of 10.8 and left- sided dominant araceli metastasis demonstrated SUV of 5.5. There is no definite hepatic metastasis. - on September 13, 2017 patient had biopsy of the rectal mass by Dr. Ceballos , and the pathology came back positive for invasive colonic adenocarcinoma. Pathological markers with NRAS, KRAS, BRAF and microsatellite instability high are still pending. - FOLFOX cycle # 1 on October 01, 2017 - FOLFOX cycle #2 on 15 October 2017 - FOLFOX cycle #3 on 10/29/2017 - - 10/08/17 CEA was 3.5. HPI HPI Mr. 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 Currently being treated with FOLFOX since 10/01/2017 and tolerating chemotherapy treatment very well with minimal reported toxicities. Diagnostic Studies Result Diagram: 10/29/17 1110 10/29/17 1110 Social/Occupational History Social History: Social History This is a 77 Yr old male, he is M and has [] Children Hx Smoking: Yes Smoking Status: Former Smoker Exposure to Second Hand Smoke?: No When Quit Tobacco?: over 30 years ago Allergies & Medications Allergies: Coded Allergies: No Known Drug Allergies (Unverified , 09/04/17) Home Meds Active Scripts Lisinopril (LISINOPRIL) 10 Mg Tablet, 10 MG PO QDAY, #90 TAB 0 Refills Prov:ASHLEE GORMAN MD 10/03/17 Reported Medications Ibuprofen (ADVIL) 200 Mg Capsule, 1-2 CAP PO Q6-8H Y for PAIN, CAPSULE 07/23/17 Review of Systems Constitution: Denies Appetite/Weight Change, Denies Fever/Chills/Sweating, Denies Recent Infection, Denies Other HEENT: No EARS: Tinnitus, No NOSE: Nasal Discharge, No THROAT: Sore Throat, No EYES: Dipolpia, No EARS: Hearing Problems, No NOSE: Epistaxis, No THROAT: Mouth Ulcers, No EYES: Vision Change, No OTHER Respiratory: No Cough, No Expectoration, No Hemoptysis, No Shortness of Breath , No OTHER Cardiovascular: No Chest Pain, No Orthopnea, No Edema, No Palpitations, No OTHER Gastrointestinal: No Nausea, No Vomitting, No Diarrehea, Constipation, No Heart Burn, No Swallowing Difficulties, No Abdominal Pain, No Other Gentiourinary: No Hematuria, No Dysuria, No Nocturia, Other (Rectal pain during defecation.) Musculoskeletal: Muscle Pain, No Joint Pain, No Bone Pain, No Other Hematological: No Bleeding, No Weakness, No Enlarged Lyph Nodes, No Bruising, No Fatigue, No Other Skin: No Skin Rash, No Lumps, No Erythema, No Dry Skin, No Moist Skin, No Other Psychiatric: Other Vital Signs Vital Signs Temperature: 97.6 Pulse: 64 BP Systolic: 173 BP Diastolic: 93 Respiratory Rate: 16 O2 SAT: 92 O2 Delivery: Height (feet) Height (inches) 66.50 Weight lb: 183 Weight oz: Weight Kg (Hermes): Pain: 2 : ECOG 1- Strenuous physical activity restricted; fully ambulatory and able to carry out light work. Physical Exam General: Looks Stable, Well Developed HEENT: No HEAD:Atraumatic, No EYES: Conjuctivitis, No EYES: Icterus, No MOUTH: Mucocitis, No MOUTH: Oral Thrush, No SINUS: Tenderness to Palpation, No Other Neck: No Cervical Lymphadenopathy, No Subclavicular Lymphadopathy, No Thyromegaly, No Other Lungs: Clear to Auscultation, Percussion Bilaterally Heart: Regular Rate and Rhythm Abdomen: Soft and Nontender Extremities: No Cyanosis, No Clubbing, No Edema, No Other Lymphatics: No Peripheral Lymphadenopathy, No Other Psychiatric: Mood appears normal Skin: No Skin Rashes, No Bruising, No Purpura, No Moist Desquamation, No Dry Desquamation, No Errythema, No Mild Errythema, No Moderate Errythema, No Severe Errythema, No Induration, Other (Hyperpigmentation on bilateral hand digits.) Breast: No No Masses, No No Nipple Discharge, No No Skin Changes, No Other Assessment and Plan Assessment and Plan Mr. 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 Currently being treated with FOLFOX since 10/01/2017 and tolerating chemotherapy treatment very well with minimal reported toxicities DIAGNOSTIC DATA CBC showed a white count of10.7 , hemoglobin 15.2, hematocrit 44.2, platelets 102 . ANC 8.1; Chem panel totally normal except random glucose of 113. BUN 20; Creatinine 1.00 DIAGNOSTIC/LABORATORY STUDIES Chem panel is totally normal. CEA was 3.5. on 10/08/17 1. 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 Receiving Cycle#3 FOLFOX today 10/29/2017. His pre-chemotherapy CEA was 3.5. Patient will receive Neulasta after each cycle of chemotherapy on day three. We will see patient in two weeks with CBC, chem panel, and CEA prior to the next cycle of chemotherapy. #2 Pain. Patient reports pain during defecation.level 2-3 with pressure that's typically alleviated at nighttime with 2 [id number] Tylenol . #3 Constipation . Patient was reeducated to take colace stool softener twice a day as needed and to back off stool softeners when he's having more than 3 bowel movements per day. #4 Disease /chemotherapy Cold Induced neuropathy . Patient reports that he feels tingling and numbness sensation on his digits when he is touching cold items he was educated to minimize contact with cold. #5 Therapy induced hyperpigmentation. On physical exam patient up her bilateral digits had mild hyperpigmentation nail bedding intact, denies pain. we will continue to monitor for changes in appearance of the skin hyperpigmentation. hopefully these would resolve months after therapy patient was educated to avoid sun exposure and refrain from extreme temperatures. 6. Chemotherapy-induced thrombocytopenia. Current platelet count 102,000. improving. Will continue to monitor. 7. Hypertension. Patient was re-educated to take his blood pressure medications lisinopril everyday BP today 150/92-62. patient is asymptomatic. PLAN 1. FOLFOX cycle #3 10/29 2017. Will continue monitor counts closely. 2. CBC, chem panel, Mag, CEA, uric acid prior to the next cycle of chemotherapy. F/u with MD/DERRICK in 2 weeks. 3. Patient to continue not to take Ibuprofen 4. Patient May take OTC Tylenol up to 4 tabs PO daily for rectal pain PRN. 5. Patient to return resume lab checks Q two weeks with CBC, chem panel, 6. Neulasta 6 mg subcutaneously after chemotherapy on day #3 if ANC is below normal limits. 7. Patient to call clinic if Colace not helping with BMs. So that we add Senokot and miralax as needed. 8. Patient to contact us for any new concern or complaints. 9. Recommend patient to visit an ophthalmology to have and eye exam. He informs that he uses the highest grade of reading classes. TIME SPENT: 25 minutes > 20 minutes includes but not limited to discussion, counselling and co-ordination~ of care. Discussion with other health care providers, record review, review of lab work, diagnostic tests. Plan discussed extensively with patient. All the questions answered today. Thank you for the opportunity to be involved in the care of Maxwell Vargas. Billing Level: Return visit 4 CC Copies to: JAISON BROWN MD-MICKIE COTTRELL, ONC Oct 29, 2017 17:21
[2017-10-31] MEDS: HEPARIN FLSH (PORT) 500 UN/5ML IVP PRN (14:18)
[2017-10-31 14:23] VITALS: BP 134/84
[2017-11-05 09:24] VITALS: BP 122/78
[2017-11-05 09:32] LABS: PLATELET COUNT, AUTOMATED 77 K/uL (150-450)
[2017-11-08 09:43] VITALS: BP 145/87
--- NOTE | 2017-11-08 17:01 | ONCOLOGY FOLLOW UP NOTE ---
EVENT DATE: November 08, 2017 DIAGNOSES 1. Stage IV colorectal cancer. 2. Pulmonary metastasis involving both lungs. 3. Hypertension. CHIEF COMPLAINT Patient is here today for followup of his metastatic colon cancer. ONCOLOGY HISTORY Patient is a 77-year-old [place] male who presented with rectal bleeding and lower abdominal pain lately and patient was planned to have a colonoscopy done by Dr. Ceballos, but patient had an issue with emergency in [facility] so he left the [facility] without having the colonoscopy done here in [place]. But he did a colonoscopy there in [facility], and the colonoscopy was done on August 17, 2017 which showed four polyps in the ascending colon and one polyp in the hepatic flexure, and all came back positive for tubular adenoma. There was a mass at the rectosigmoid junction and the biopsy of this mass came back positive for moderately differentiated adenocarcinoma. After he returned back from [facility], patient visited with Dr. Ceballos, who requested a PET/CT scan which was done on September 06, 2017, and the PET/CT scan showed numerous metabolically active parenchymal lung metastases throughout both lungs. There was also irregular locally invasive rectal tumor associated with internal iliac and perirectal lymphadenopathy. The largest circumferential rectal mass demonstrated SUV of 10.8 and left-sided dominant araceli metastasis demonstrated SUV of 5.5. There is no definite hepatic metastasis. Patient had biopsy of the rectal mass by Dr. Ceballos on September 13, 2017, and the pathology came back positive for invasive colonic adenocarcinoma. Pathological markers with NRAS, KRAS, BRAF and microsatellite instability high are still pending. Patient started treatment with FOLFOX on 01 October 2017. HISTORY OF PRESENT ILLNESS The patient is here today for followup his metastatic colon cancer. He is tolerating chemotherapy very well. He started his chemotherapy on 01 October 2017. He received three courses so far. He is complaining of nasal discharge and occasional epistaxis. He has some perianal pain sometimes. He has cold exposure neuropathy in his fingers on exposure to cold. He is weak, tired and fatigued. He developed skin pigmentation around his fingers, most probably from his 5-FU. PAST MEDICAL HISTORY Significant for hypertension. PAST SURGICAL HISTORY Insignificant. FAMILY HISTORY Sister with breast cancer. SOCIAL HISTORY Patient is with two children. 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 He quit smoking 20-30 years ago after less than one pack a day for about 10 years. He drinks about three to four beers at least per week. Denies any abuse of illicit drugs. CURRENT MEDICATIONS 1. Anusol 25 mg suppository b.i.d. 2. Colace 100 mg daily. 3. Lisinopril 10 mg daily. ALLERGIES No known drug allergies. REVIEW OF SYSTEMS CONSTITUTIONAL: No appetite or weight change. No fever, chills or sweating. No recent infection. HEENT: Ears: No tinnitus or hearing problem. Nose: He has nasal discharge and occasional epistaxis. Throat: No sore throat or mouth ulcers. Eyes: No diplopia or visual changes. RESPIRATORY: No shortness of breath. No cough, expectoration or hemoptysis. CARDIOVASCULAR: No chest pain, orthopnea, or paroxysmal nocturnal dyspnea (PND) . No edema. No palpitations. GASTROINTESTINAL: No nausea or vomiting. He has constipation, using stool softener. No heartburn or swallowing difficulties. No abdominal pain. No jaundice. No hematemesis, melena or rectal bleeding. He has perianal pain sometimes. GENITOURINARY: No hematuria or dysuria. MUSCULOSKELETAL: No pain in the muscles, joints or bones. NEUROLOGICAL: He has tingling and numbness in the fingers on cold exposure. No headaches or convulsions. HEMATOLOGIC/LYMPHATIC: No bleeding or easy bruising. He has weakness, tiredness, and fatigue. No enlarged lymph nodes. SKIN: No skin rash or lumps. He has skin pigmentation around his fingers most probably from his 5-FU therapy. PSYCHIATRIC: No anxiety or depression. PHYSICAL EXAMINATION GENERAL: Looks stable. Well developed, well nourished, and in no acute distress. VITAL SIGNS: Blood pressure 145/87, pulse 93 per minute, respirations 16 per minute, temperature 97.3, pulse oximetry 90% on room air. HEENT: Head: Atraumatic. No sinus tenderness to palpation. Eyes: No icterus or conjunctivitis. Mouth and throat: No oral thrush or mucositis. NECK: Supple. No cervical or supraclavicular lymphadenopathy. LUNGS: Clear to auscultation and percussion bilaterally. HEART: Regular rate and rhythm. No gallops, murmurs, clicks or rubs. ABDOMEN: Soft and lax. No tenderness. No hepatosplenomegaly. No masses. EXTREMITIES: No cyanosis, clubbing or edema. LYMPHATICS: No peripheral lymphadenopathy. NEUROLOGICAL: Conscious, alert and oriented times three. No focal motor or sensory deficits. PSYCHIATRIC: Mood and affect appear normal. SKIN: No skin rash, bruise or purpuric eruption. There is skin pigmentation, blackish around the fingers of both hands, most probably a reaction from his 5- FU. DIAGNOSTIC DATA CBC showed white count 16.3, hemoglobin 14.9, hematocrit 43.6, platelets 77, 000. BUN 24. Blood sugar 112. Other chem panel is normal. Alkaline phosphatase mildly elevated at 167. ASSESSMENT 1. 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 Patient had a colonoscopy done in [facility] August 12, 2017, and four polyps from the ascending colon and one polyp from the hepatic flexure all came back positive for tubular adenoma. There was a mass at the rectosigmoid junction, and the biopsy of this mass came back positive for moderately differentiated adenocarcinoma. PET/CT scan done September 06, 2017, did reveal the presence of numerous metabolic-reactive parenchymal metastases throughout both lungs. The irregularly local invasive rectal tumor associated with internal iliac, perirectal lymphadenopathy was also noted. There was no hepatic metastasis. Patient has been seen by Dr. Ceballos, who placed a central port and did a sigmoidoscopy and a biopsy of the rectal mass, done September 13, 2017. The pathology came back positive for invasive colonic adenocarcinoma. Pathological markers with KRAS, NRAS, BRAF, and microsatellite instability high were done. Patient has started chemotherapy with FOLFOX October 01, 2017. His pre -chemotherapy CEA was 3.5. He received three cycles so far and he is due for his fourth cycle on November 12, 2017, and I am planning to proceed with the treatment as planned if his blood count is okay at that time. I will see him again in two weeks with CBC, chem panel, and CEA prior to his next dose of chemotherapy. 2. Hypertension, on treatment. 3. Chemotherapy-induced thrombocytopenia. Current platelet count 77,000. Will continue to monitor. PLAN 1. FOLFOX cycle #4 if his CBC allows on November 12, 2017. 2. CBC, chem panel to be checked weekly. 3. Patient to return in two weeks with CBC, chem panel, CEA. 4. Neulasta 6 mg subcutaneously after chemotherapy day #3. 5. Patient to contact us for any new concerns or complaints. MTDD
[2017-11-12 09:52] VITALS: BP 131/87
[2017-11-12] MEDS: HEPARIN FLSH (PORT) 500 UN/5ML IVP PRN (11:04)
[2017-11-12] MEDS: LIDOCAINE/SOD BICARB 8.4% SYR ID PRN (11:04)
[2017-11-12] MEDS: NS(*) 0.9% 500 ML BAG 500 ML IV PRN (11:06)
[2017-11-19 10:51] VITALS: BP 132/75
[2017-11-19] MEDS: PALONOSETRON 0.25 MG/5 ML VIAL IVP PRN (11:28)
[2017-11-19] MEDS: DEXAMETHASONE SOD PHOS 10MG/ML IVP PRN (11:29)
[2017-11-19] MEDS: DEXTROSE 5%(*) 100 ML BAG 100 ML IVPB PRN (11:36)
[2017-11-19] MEDS: HEPARIN FLSH (PORT) 500 UN/5ML IVP PRN (11:36)
[2017-11-19] MEDS: NS(*) 0.9% 500 ML BAG 500 ML IV PRN (11:37)
[2017-11-19 15:10] VITALS: BP 151/91
[2017-11-19] MEDS: LIDOCAINE/SOD BICARB 8.4% SYR ID PRN (16:44)
[2017-11-21] MEDS: HEPARIN FLSH (PORT) 500 UN/5ML IVP PRN (14:45)
[2017-11-21 15:12] VITALS: BP 112/80
[2017-11-26 09:31] VITALS: BP 147/80
[2017-11-26 09:41] LABS: PLATELET COUNT, AUTOMATED 88 K/uL (150-450)
[~2017-12-03] VITALS: Ht 168.9 cm; Wt 79.1 kg
[~2017-12-03 10:02] MED LIST changes: +ALTEPLASE RECOMB 2 MG VIAL IVP PRN; +BEVACIZUMAB IVPB ONE; +D5W IVPB ONE; +FLUOROURACIL 50 MG/ML SDV IV ONE; +FLUOROURACIL 50 MG/ML SDV IVP ONE; +FLUOROURACIL IV ONE; +LEUCOVORIN CAL IV ONE; +LEUCOVORIN IV ONE; +LISINOPRIL 10 MG TAB PO ONE; +NS 0.9% IV ONE; +NS 0.9% IVPB ONE; +NS(*) 0.9% 100 ML BAG 100 ML IVPB PRN; +OXALIPLATIN IVPB ONE; +PEGFILGRASTIM 6 MG/0.6 ML SYR SUBQ ONE; +WATER FOR INJ,STERILE 20 ML IVP PRN; +[UNRECOGNIZED DRUG - OTHER] IV ONE
[2017-12-03 10:36] VITALS: BP 97/67
[2017-12-03] MEDS ORDERED: ACET500T68 PO (11:00)
[2017-12-03] MEDS: HEPARIN FLSH (PORT) 500 UN/5ML IVP PRN (11:21)
--- NOTE | 2017-12-03 12:02 | Oncology Progress Note ---
History of Present Illness Evaluation Evaluation Date: Dec 03, 2017 Evaluation Time: 10:30 Accompanied by Accompanied by: Self Last seen by : Jose 11/08/2017 Chief Complaint Chief Complaint Management FOLFOX cycle #5 due today (Treatment for his metastatic colon cancer) Oncology History Oncology History Patient is a 77-year-old [place] male who presented with rectal bleeding and lower abdominal pain lately and patient was planned to have a colonoscopy done by Dr. Ceballos, but patient had an issue with emergency in [facility] so he left the [facility] without having the colonoscopy done here in [place]. But he did a colonoscopy there in [facility], and the colonoscopy was done. - August 17, 2017 which showed four polyps in the ascending colon and one polyp in the hepatic flexure, and all came back positive for tubular adenoma. There was a mass at the rectosigmoid junction and the biopsy of this mass came back positive for moderately differentiated adenocarcinoma. After he returned back from [facility] - September 06, 2017,patient visited with Dr. Ceballos, who requested a PET/CT scan which was done and the PET/CT scan showed numerous metabolically active parenchymal lung metastases throughout both lungs. There was also irregular locally invasive rectal tumor associated with internal iliac and perirectal lymphadenopathy. The largest circumferential rectal mass demonstrated SUV of 10.8 and left- sided dominant araceli metastasis demonstrated SUV of 5.5. There is no definite hepatic metastasis. - on September 13, 2017 patient had biopsy of the rectal mass by Dr. Ceballos , and the pathology came back positive for invasive colonic adenocarcinoma. Pathological markers with NRAS, KRAS, BRAF and microsatellite instability high are still pending. - FOLFOX cycle # 1 on October 01, 2017 - FOLFOX cycle #2 on 15 October 2017 - FOLFOX cycle #3 on 10/29/2017 - - 10/08/17 CEA was 3.5. -- 12/03/2017 CEA is 4.0 Treatment Treatment FOLFOX cycle # 1 on October 01, 2017 - FOLFOX cycle #2 on 15 October 2017 - FOLFOX cycle #3 on 10/29/2017 - - 10/08/17 CEA was 3.5. FOLFOX cycle#5 Due today 12/03/2017. We will hold treatment due to Platelets of 87K, and hyperpigmentation of tongue and finger nails, coupled with neuropathy. HPI HPI Mr. 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 Currently being treated with FOLFOX since 10/01/2017. patient in seen and examined at the infusion clinic. he has been doing relatively well throughout the last 4 cycles of FOLFOX. That said, on Exam today bilateral fingers are with more pronounced hyperpigmentation and dry desquamation. Patient reports diminished tactile sensation, as well as numbness feeling sensation, enhanced by extreme temperatures.. We will have to hold treatment today a) due to the low platelets of 87K. And hyperpigmentation of the fingers, and tongue. Patient is a poor historian, he is not able to verbalize symptoms easily, it takes a quite a while to to go through with the physical exam. He reports to be in his usual state of health, and rectal pain is minimal and he does use Tylenol when necessary. rectal Pain is usually exacerbated during periods of bowel movements, he denies any dark stool any bright stools nor coffee-ground stools , no bloating, no dysuria. no hematuria, no easy bruising. He reports scant amount of tinged blood when he blows his nose in the morning. He denies any headaches no dizziness. He informs me that he continues to drink occasionally and that he had 7 beers last night. patient was reeducated to refrain from drinking alcohol in the setting of chemotherapy treatment and low platelet count, extreme caution and bleeding precautions around the house and throughout the ADLs performance reinforced. Patient was informed of the decision to hold treatment today. I will initiate patient on PCP prophylaxis for PJP pneumonia with Bactrim one tablet DS Q Sunday and Sunday. Patient was instructed to continue to apply moisturizer to fingers and dry skin, also that Dr. Garcia and the pharmacy team will dose adjust treatment accordingly. Living Conditions Lives with his . Diagnostic Studies Result Diagram: 12/03/17 1020 12/03/17 1020 Social/Occupational History Social History: Social History This is a 77 Yr old male, he is M and has [] Children Hx Smoking: Yes Smoking Status: Former Smoker Exposure to Second Hand Smoke?: No When Quit Tobacco?: over 30 years ago Allergies & Medications Allergies: Coded Allergies: No Known Drug Allergies (Unverified , 09/04/17) Home Meds Active Scripts Acetaminophen (TYLENOL EXTRA STRENGTH) 500 Mg Tablet, 500 MG PO DIRECTED for 7 Days, TAB Prov:MICKIE SHIELDS, ONC 12/03/17 Lisinopril (LISINOPRIL) 10 Mg Tablet, 10 MG PO QDAY, #90 TAB 0 Refills Prov:ASHLEE GORMAN MD 10/03/17 Discontinued Reported Medications Ibuprofen (ADVIL) 200 Mg Capsule, 1-2 CAP PO Q6-8H Y for PAIN, CAPSULE 07/23/17 Review of Systems Constitution: Denies Appetite/Weight Change, Denies Fever/Chills/Sweating, Denies Recent Infection, Denies Other HEENT: No EARS: Tinnitus, No NOSE: Nasal Discharge, No THROAT: Sore Throat, No EYES: Dipolpia, No EARS: Hearing Problems, No NOSE: Epistaxis, No THROAT: Mouth Ulcers, No EYES: Vision Change, No OTHER Respiratory: No Cough, No Expectoration, No Hemoptysis, No Shortness of Breath , No OTHER Cardiovascular: No Chest Pain, No Orthopnea, No Edema, No Palpitations, No OTHER Gastrointestinal: No Nausea, No Vomitting, No Diarrehea, Constipation, No Heart Burn, No Swallowing Difficulties, No Abdominal Pain, No Other Gentiourinary: No Hematuria, No Dysuria, No Nocturia, Other (Rectal pain during defecation.) Musculoskeletal: Muscle Pain, No Joint Pain, No Bone Pain, No Other Hematological: No Bleeding, No Weakness, No Enlarged Lyph Nodes, No Bruising, No Fatigue, No Other Skin: No Skin Rash, No Lumps, No Erythema, Dry Skin, No Moist Skin, No Other Psychiatric: Other Vital Signs Vital Signs Temperature: 97.3 Pulse: 64 BP Systolic: 97 BP Diastolic: 67 Respiratory Rate: 16 O2 SAT: 94 O2 Delivery: Height (feet) Height (inches) 66.50 Weight lb: 183 Weight oz: Weight Kg (Hermes): Pain: 0 ECOG-1 Physical Exam General: Looks Stable, Well Developed HEENT: No HEAD:Atraumatic, No EYES: Conjuctivitis, No EYES: Icterus, No MOUTH: Mucocitis, No MOUTH: Oral Thrush, No SINUS: Tenderness to Palpation, No Other Neck: No Cervical Lymphadenopathy, No Subclavicular Lymphadopathy, No Thyromegaly, No Other Lungs: Clear to Auscultation, Percussion Bilaterally Heart: Regular Rate and Rhythm Abdomen: Soft and Nontender Extremities: No Cyanosis, No Clubbing, No Edema, No Other Lymphatics: No Peripheral Lymphadenopathy, No Other Psychiatric: Mood appears normal Skin: No Skin Rashes, No Bruising, No Purpura, No Moist Desquamation, Dry Desquamation, No Errythema, No Mild Errythema, No Moderate Errythema, No Severe Errythema, No Induration, Other (Hyperpigmentation on bilateral hand digits.) Breast: No No Masses, No No Nipple Discharge, No No Skin Changes, No Other Assessment and Plan Assessment and Plan Assessment and Plan Mr. 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 Currently being treated with FOLFOX since 10/01/2017. patient in seen and examined at the infusion clinic. he has been doing relatively well throughout the last 4 cycles of FOLFOX. That said, on Exam today bilateral fingers are with more pronounced hyperpigmentation and dry desquamation. Patient reports diminished tactile sensation, as well as numbness feeling sensation, enhanced by extreme temperatures.. We will have to hold treatment today a) due to the low platelets of 87K. And hyperpigmentation of the fingers, and tongue. DIAGNOSTIC DATA CBC showed a white count of 10.7 , hemoglobin 15.2, hematocrit 44.2, platelets 102 . ANC 8.1; Chem panel totally normal except random glucose of 113. BUN 20; Creatinine 1.00 DIAGNOSTIC/LABORATORY STUDIES Chem panel is totally normal. CEA was 3.5. on 10/08/17 CEA was 4.0. 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 Receiving Cycle#3 FOLFOX today 10/29/2017. His pre-chemotherapy CEA was 4.0. on 03/10 . We will see patient next weeks with CBC, chem panel, and CEA, if counts acceptable, we will admin treatments. #2 Pain. Patient reports pain during defecation.level 2-3 with pressure that's typically alleviated at nighttime with 2 [id number] Tylenol . #3 Constipation . Patient on stool softener twice a day as needed and to back off stool softeners when he's having more than 3 bowel movements per day. #4 Disease /chemotherapy Cold Induced neuropathy . Patient reports that he feels tingling and numbness sensation on his digits when he is touching cold items he was educated to minimize contact with cold. Teaching provided to use a stress ball, continue to keep hands moisturize, avoid extreme hot/cold temperatures. Will dose adjust, and initiate gabapentin. #5 Therapy induced hyperpigmentation. On physical exam patient up her bilateral digits had mild hyperpigmentation nail bedding intact, denies pain. we will continue to monitor for changes in appearance of the skin hyperpigmentation. hopefully these would resolve months after therapy patient was educated to avoid sun exposure and refrain from extreme temperatures. 6. Chemotherapy-induced thrombocytopenia. Current platelet count 87,000. improving. No bruising or active bleeding.Will continue to monitor 7. Hypertension. stable . Patient took his BP meds this morning. BP today is 97 /67-64. he is AAOX3 patient is asymptomatic. poor historian, and health literacy challenged. Patient was re-educated to take his blood pressure medications everyday as instructed, vs. when he remembers. PLAN 1. We will hold cycle #5 FOLFOX 2017. due to the low platelets of 87K.hyperpigmentation of the fingers and tongue, dry desquamation . Will continue monitor counts closely. 1a. Spoke to Pharmacist Karen in terms of dose adjustment. Will discuss with Dr. Garcia in regards to toxicities manifestations with relevant dose adjustment treatment plan. 2. CBC, chem panel, Mag, CEA, uric acid prior to the next cycle of chemotherapy. F/u with MD/DERRICK in 2 weeks. 3. Patient may use a stress ball, continue to keep hands moisturize, avoid extreme hot/cold temperatures. 4. Patient May take OTC Tylenol up to 4 tabs PO daily for rectal pain PRN. 5. Patient to return resume lab checks Q two weeks with CBC, chem panel, 6. Neulasta 6 mg subcutaneously after chemotherapy on day #3 if ANC is below normal limits. 7. Patient to contact us for any new concern or complaints 8. Recommend patient to visit an ophthalmology to have and eye exam. He informs that he uses the highest grade of reading [id number].Will consider starting gabapentin for peripheral neuropathy. hopefully this should revolve soon, after completion of treatment. 9. Patient to continue not to take Ibuprofen TIME SPENT: 30 minutes > 25 minutes includes but not limited to discussion, counselling and co-ordination~ of care. Discussion with other health care providers, record review, review of lab work, diagnostic tests. Plan discussed extensively with patient. All the questions answered today. Thank you for the opportunity to be involved in the care of Maxwell Vargas. Billing Level: Return visit 4 MICKIE SHIELDS, ONC Dec 03, 2017 12:02
== END 2017-12-04 ==
LOC: ONC 10:02
PROVIDERS: ATTEND Internal Medicine Hematology
DX: Z51.11 Encounter for antineoplastic chemotherapy (principal); C20 Malignant neoplasm of rectum; I10 Essential (primary) hypertension; C78.02 Secondary malignant neoplasm of left lung; C78.01 Secondary malignant neoplasm of right lung; Z87.891 Personal history of nicotine dependence; D69.59 Other secondary thrombocytopenia
CPT/HCPCS: 36415; 81001; 82378; 83735; 85025; 85027; 96368; 96372; 96375; 96411; 96413; 96415; 96416; 96417; A9270; G0463; J0640; J1100; J1642; J2469; J2505; J7040; J7050; J7060; J9035; J9190; J9263; 82040; 82247; 82310; 82374; 82435; 82565; 82947; 84075; 84132; 84155; 84295; 84450; 84460; 84520; 99202; 99212

== ENCOUNTER 2018-02-26 08:59 | Outpatient (RCR) | payer MEDICARE ==
[2017-12-11 09:25] VITALS: BP 118/67
[2017-12-11] MEDS: NS(*) 0.9% 500 ML BAG 500 ML IV PRN (09:29)
[2017-12-11] MEDS: DEXTROSE 5%(*) 100 ML BAG 100 ML IVPB PRN ×2 (09:30→11:31)
[2017-12-11] MEDS: PALONOSETRON 0.25 MG/5 ML VIAL IVP PRN (10:19)
[2017-12-11] MEDS: DEXAMETHASONE SOD PHOS 10MG/ML IVP PRN (10:19)
[2017-12-13] MEDS: HEPARIN FLSH (PORT) 500 UN/5ML IVP PRN (12:57)
[2017-12-13 13:10] VITALS: BP 108/66
[2017-12-18 09:11] VITALS: BP 124/73
[2017-12-18 09:25] LABS: PLATELET COUNT, AUTOMATED 95 K/uL (150-450)
[2017-12-25] MEDS: LIDOCAINE/SOD BICARB 8.4% SYR ID PRN (10:56)
[2017-12-25 10:57] VITALS: BP 134/80
[2017-12-25] MEDS: NS(*) 0.9% 500 ML BAG 500 ML IV PRN (10:57)
[2017-12-25] MEDS: HEPARIN FLSH (PORT) 500 UN/5ML IVP PRN (12:00)
[2017-12-27 14:06] VITALS: BP 108/64
--- NOTE | 2017-12-27 17:20 | ONCOLOGY FOLLOW UP NOTE ---
EVENT DATE: December 27, 2017 DIAGNOSES 1. Stage IV colorectal cancer. 2. Pulmonary metastasis involving both lungs. 3. Hypertension. CHIEF COMPLAINT Patient is here today for followup of his metastatic colon cancer. ONCOLOGY HISTORY Patient is a 77-year-old Maur[place] male who presented with rectal bleeding and lower abdominal pain lately and patient was planned to have a colonoscopy done by Dr. Ceballos, but patient had an issue with emergency in [facility] so he left the [facility] without having the colonoscopy done here in [place]. But he did a colonoscopy there in [facility], and the colonoscopy was done on August 17, 2017 which showed four polyps in the ascending colon and one polyp in the hepatic flexure, and all came back positive for tubular adenoma. There was a mass at the rectosigmoid junction and the biopsy of this mass came back positive for moderately differentiated adenocarcinoma. After he returned back from [facility], patient visited with Dr. Ceballos, who requested a PET/CT scan which was done on September 06, 2017, and the PET/CT scan showed numerous metabolically active parenchymal lung metastases throughout both lungs. There was also irregular locally invasive rectal tumor associated with internal iliac and perirectal lymphadenopathy. The largest circumferential rectal mass demonstrated SUV of 10.8 and left-sided dominant araceli metastasis demonstrated SUV of 5.5. There is no definite hepatic metastasis. Patient had biopsy of the rectal mass by Dr. Ceballos on September 13, 2017, and the pathology came back positive for invasive colonic adenocarcinoma. Pathological markers with NRAS, KRAS, BRAF and microsatellite instability high are still pending. Patient started treatment with FOLFOX on 01 October 2017. HISTORY OF PRESENT ILLNESS The patient is here today for followup his metastatic colon cancer on chemotherapy with FOLFOX. Patient has a problem with his platelet count, thought to be due to his chemotherapy and alcohol intake. He is complaining of some runny nose. He is also weak, tired and fatigued. He developed a blackish discoloration of the skin of the tips of his fingers, most probably from 5-FU. PAST MEDICAL HISTORY Significant for hypertension. PAST SURGICAL HISTORY Insignificant. FAMILY HISTORY Sister with breast cancer. SOCIAL HISTORY Patient is with two children. 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 He quit smoking 20-30 years ago after less than one pack a day for about 10 years. He drinks about three to four beers at least per week. Denies any abuse of illicit drugs. CURRENT MEDICATIONS 1. Anusol 25 mg suppository b.i.d. 2. Colace 100 mg daily. 3. Lisinopril 10 mg daily. ALLERGIES No known drug allergies. REVIEW OF SYSTEMS CONSTITUTIONAL: No appetite or weight change. No fever, chills or sweating. No recent infection. HEENT: Ears: No tinnitus or hearing problem. Nose: He has nasal discharge. Throat: No sore throat or mouth ulcers. Eyes: No diplopia or visual changes. RESPIRATORY: No shortness of breath. No cough, expectoration or hemoptysis. CARDIOVASCULAR: No chest pain, orthopnea, or paroxysmal nocturnal dyspnea (PND). No edema. No palpitations. GASTROINTESTINAL: No nausea or vomiting. No diarrhea or constipation. No heartburn or swallowing difficulties. No abdominal pain. No jaundice. No hematemesis, melena or rectal bleeding. He has perianal pain sometimes. GENITOURINARY: No hematuria or dysuria. MUSCULOSKELETAL: No pain in the muscles, joints or bones. NEUROLOGICAL: He has tingling and numbness in the fingers on cold exposure. No headaches or convulsions. HEMATOLOGIC/LYMPHATIC: No bleeding or easy bruising. He is weak, tired and fatigued. No enlarged lymph nodes. SKIN: No skin rash or lumps. He has skin pigmentation around his fingers most probably from his 5-FU therapy. PSYCHIATRIC: No anxiety or depression. PHYSICAL EXAMINATION GENERAL: Looks stable. Well developed, well nourished, and in no acute distress. VITAL SIGNS: Blood pressure 108/64, pulse 62 per minute, respirations 16 per minute, temperature 97.2, pulse oximetry 93% on room air. HEENT: Head: Atraumatic. No sinus tenderness to palpation. Eyes: No icterus or conjunctivitis. Mouth and throat: No oral thrush or mucositis. NECK: Supple. No cervical or supraclavicular lymphadenopathy. LUNGS: Clear to auscultation and percussion bilaterally. HEART: Regular rate and rhythm. No gallops, murmurs, clicks or rubs. ABDOMEN: Soft and lax. No tenderness. No hepatosplenomegaly. No masses. EXTREMITIES: No cyanosis, clubbing or edema. LYMPHATICS: No peripheral lymphadenopathy. NEUROLOGICAL: Conscious, alert and oriented times three. No focal motor or sensory deficits. PSYCHIATRIC: Mood and affect appear normal. SKIN: No skin rash, bruise or purpuric eruption. There is skin pigmentation, blackish around the fingers of both hands, most probably a reaction from his 5- FU. DIAGNOSTIC DATA CBC showed white count 13.4, hemoglobin 15.9, hematocrit 47.2, platelets 85,000. Chem panel totally normal except blood sugar 119. Pathological markers from his tumor came back negative for NRAS, KRAS, BRAF, and MSI-high. ASSESSMENT 1. 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 Patient had a colonoscopy done in [facility] August 12, 2017, and four polyps from the ascending colon and one polyp from the hepatic flexure all came back positive for tubular adenoma. There was a mass at the rectosigmoid junction, and the biopsy of that mass came back positive for moderately differentiated adenocarcinoma. PET/CT scan done September 06, 2017, did reveal the presence of numerous metabolicallly active parenchymal metastases throughout both lungs. The irregularly local invasive rectal tumor associated with internal iliac, perirectal lymphadenopathy was also noted. There was no hepatic metastasis. Patient has been seen by Dr. Ceballos, who placed a central port and did a sigmoidoscopy and a biopsy of the rectal mass, done September 13, 2017. The pathology came back positive for invasive colonic adenocarcinoma. Pathological markers with KRAS, NRAS, BRAF, and microsatellite instability high all were done. His pre-chemotherapy CEA was 3.5. The patient started chemotherapy with FOLFOX October 01, 2017. His chemotherapy is held lately because of the thrombocytopenia, and the patient actually was drinking alcohol nearly on a daily basis, so the patient was advised to stop alcohol intake at all. I am planning to resume his chemotherapy when his platelet count is above 100,000. If he will start chemotherapy next week, I am planning to see him in two weeks after that with CBC, chem panel and CEA. 2. Hypertension, on treatment. 3. Chemotherapy-induced thrombocytopenia. Current platelet count 85,000. Will continue to monitor and check his count every week. PLAN 1. Resume FOLFOX if platelet count is above or equal to 100,000. 2. CBC, chem panel to be checked weekly. 3. Patient to return in two weeks after resuming chemotherapy with CBC, chem panel, CEA. 4. Neulasta 6 mg subcutaneously after chemotherapy on day #3. 5. Patient to contact us for any new concerns or complaints. MTDD
--- NOTE | 2017-12-27 17:48 | ONCOLOGY FOLLOW UP NOTE ---
ADDENDUM Pathological markers from his tumor came back negative for NRAS, KRAS, BRAF, and MSI-high. MTDD
[2018-01-01 09:08] VITALS: BP 124/59
[2018-01-01] MEDS: NS(*) 0.9% 500 ML BAG 500 ML IV PRN (09:17)
[2018-01-01] MEDS: LIDOCAINE/SOD BICARB 8.4% SYR ID PRN (09:17)
[2018-01-01] MEDS: PALONOSETRON 0.25 MG/5 ML VIAL IVP PRN (09:45)
[2018-01-01] MEDS: DEXAMETHASONE SOD PHOS 10MG/ML IVP PRN (09:46)
[2018-01-01] MEDS: DEXTROSE 5%(*) 100 ML BAG 100 ML IVPB PRN (11:04)
[2018-01-01 15:14] VITALS: BP 133/75
[2018-01-03 12:36] VITALS: BP 118/69
[2018-01-10 12:06] LABS: PLATELET COUNT, AUTOMATED 92 K/uL (150-450)
[2018-01-10 12:16] VITALS: BP 121/77
--- NOTE | 2018-01-10 17:42 | ONCOLOGY FOLLOW UP NOTE ---
EVENT DATE: January 10, 2018 DIAGNOSES 1. Stage IV colorectal cancer. 2. Pulmonary metastasis involving both lungs. 3. Hypertension. CHIEF COMPLAINT Patient is here today for followup of his metastatic colon cancer. ONCOLOGY HISTORY Patient is a 77-year-old [place] male who presented with rectal bleeding and lower abdominal pain lately and patient was planned to have a colonoscopy done by Dr. Ceballos, but patient had an issue with emergency in [facility] so he left the [facility] without having the colonoscopy done here in [place]. But he did a colonoscopy there in [facility], and the colonoscopy was done on August 17, 2017 which showed four polyps in the ascending colon and one polyp in the hepatic flexure, and all came back positive for tubular adenoma. There was a mass at the rectosigmoid junction and the biopsy of this mass came back positive for moderately differentiated adenocarcinoma. After he returned back from [facility], patient visited with Dr. Ceballos, who requested a PET/CT scan which was done on September 06, 2017, and the PET/CT scan showed numerous metabolically active parenchymal lung metastases throughout both lungs. There was also irregular locally invasive rectal tumor associated with internal iliac and perirectal lymphadenopathy. The largest circumferential rectal mass demonstrated SUV of 10.8 and left-sided dominant araceli metastasis demonstrated SUV of 5.5. There is no definite hepatic metastasis. Patient had biopsy of the rectal mass by Dr. Ceballos on September 13, 2017, and the pathology came back positive for invasive colonic adenocarcinoma. Pathological markers with NRAS, KRAS, BRAF and microsatellite instability high are still pending. Patient started treatment with FOLFOX on 01 October 2017. HISTORY OF PRESENT ILLNESS The patient is here today for followup his metastatic colon cancer on chemotherapy with FOLFOX. Patient had a problem with thrombocytopenia during his treatment, part of it due to his alcohol intake. He is complaining currently of loss of appetite because of the change in the flavor of food. He has also nasal discharge. 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 He is also weak, tired and fatigued and he felt that his chemotherapy was getting too tough on him lately. PAST MEDICAL HISTORY Significant for hypertension. PAST SURGICAL HISTORY Insignificant. FAMILY HISTORY Sister with breast cancer. SOCIAL HISTORY Patient is with two children. 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 He quit smoking 20-30 years ago after less than one pack a day for about 10 years. He drinks about three to four beers at least per week. Denies any abuse of illicit drugs. CURRENT MEDICATIONS 1. Anusol 25 mg suppository b.i.d. 2. Colace 100 mg daily. 3. Lisinopril 10 mg daily. ALLERGIES No known drug allergies. REVIEW OF SYSTEMS CONSTITUTIONAL: He has loss of appetite due to change in the flavor of food. No fever, chills or sweating. No recent infection. HEENT: Ears: No tinnitus or hearing problem. Nose: He has nasal discharge. No epistaxis. Throat: No sore throat or mouth ulcers. Eyes: No diplopia or visual changes. RESPIRATORY: No shortness of breath. No cough, expectoration or hemoptysis. CARDIOVASCULAR: No chest pain, orthopnea, or paroxysmal nocturnal dyspnea (PND). No edema. No palpitations. GASTROINTESTINAL: No nausea or vomiting. No diarrhea or constipation. No change in bowel movements. No heartburn or swallowing difficulties. No abdominal pain. No jaundice. No hematemesis, melena or rectal bleeding. GENITOURINARY: No hematuria or dysuria. MUSCULOSKELETAL: No pain in the muscles, joints or bones. 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 No headaches or convulsions. HEMATOLOGIC/LYMPHATIC: No bleeding or easy bruising. He is weak, tired and fatigued. No enlarged lymph nodes. SKIN: No skin rash or lumps. PSYCHIATRIC: No anxiety or depression. PHYSICAL EXAMINATION GENERAL: Looks stable. Well developed, well nourished, and in no acute distress. VITAL SIGNS: Blood pressure 121/77, pulse 66 per minute, respirations 18 per minute, temperature 97, pulse oximetry 92% on room air. HEENT: Head: Atraumatic. No sinus tenderness to palpation. Eyes: No icterus or conjunctivitis. Mouth and throat: No oral thrush or mucositis. NECK: Supple. No cervical or supraclavicular lymphadenopathy. LUNGS: Clear to auscultation and percussion bilaterally. HEART: Regular rate and rhythm. No gallops, murmurs, clicks or rubs. ABDOMEN: Soft and lax. No tenderness. No hepatosplenomegaly. No masses. EXTREMITIES: No cyanosis, clubbing or edema. LYMPHATICS: No peripheral lymphadenopathy. NEUROLOGICAL: Conscious, alert and oriented times three. No focal motor or sensory deficits. PSYCHIATRIC: Mood and affect appear normal. SKIN: No skin rash, bruise or purpuric eruption. There is skin pigmentation, blackish around the fingers of both hands, most probably a reaction from his 5- FU. DIAGNOSTIC DATA CBC showed white count 24.1, hemoglobin 16, hematocrit 48.6, platelets 92,000. Chem panel totally normal except alkaline phosphatase 131. His last CEA was only 4. ASSESSMENT 1. 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 Patient had a colonoscopy done in [facility] August 12, 2017, and four polyps from the ascending colon and one polyp from the hepatic flexure all came back positive for tubular adenoma. There was a mass at the rectosigmoid junction, and the biopsy of that mass came back positive for moderately differentiated adenocarcinoma. PET/CT scan done September 06, 2017, did reveal the presence of numerous metabolicallly active parenchymal metastases throughout both lungs. The irregularly local invasive rectal tumor associated with internal iliac, perirectal lymphadenopathy was also noted. There was no hepatic metastasis. Patient has been seen by Dr. Ceballos, who placed a central port and did a colonoscopy and a biopsy of the rectal mass on September 13, 2017. The pathology came back positive for invasive colonic adenocarcinoma. Pathological markers with KRAS, NRAS, BRAF and microsatellite instability high all were done, and all the results came back negative for the NRAS, BRAF, KRAS microsatellite instability high. His pre-chemotherapy CEA was 3.5. The patient started chemotherapy with FOLFOX October 01, 2017, and he had some problem with thrombocytopenia with the treatment, attributed to his alcohol intoxication. He finished six cycles so far, and I am planning to proceed with his seventh cycle if his platelet count is above 100,000 as per schedule, and I will see him in two weeks from now with CBC, chem panel and CEA. Patient is complaining of that chemotherapy is getting too hard on him, and for this reason I am planning to give an eighth cycle, then I will re-image his scans and we will decide about further treatment after that. It most probably will be Avastin, 5-FU and leucovorin . 2. Chemotherapy-induced thrombocytopenia. Current platelet count 92,000. Will continue to monitor. 3. Neutrophilic leukocytosis, most probably reactive in nature due to Neulasta. PLAN 1. FOLFOX cycle number seven as per schedule if platelet count above 100,000. 2. CBC, chem panel to be checked weekly. 3. Patient to return in two weeks with CBC, chem panel, CEA. 4. Neulasta 6 mg subcutaneously on day three. 5. Consider re-imaging after the eighth cycle of chemotherapy. 6. Patient to contact us for any new concerns or complaints. MTDD
[2018-01-15 09:05] VITALS: BP 132/67
[2018-01-15] MEDS: LIDOCAINE/SOD BICARB 8.4% SYR ID PRN (09:15)
[2018-01-15] MEDS: NS(*) 0.9% 500 ML BAG 500 ML IV PRN (09:31)
[2018-01-15] MEDS: DEXAMETHASONE SOD PHOS 10MG/ML IVP PRN (10:32)
[2018-01-15] MEDS: PALONOSETRON 0.25 MG/5 ML VIAL IVP PRN (10:33)
[2018-01-15] MEDS: DEXTROSE 5%(*) 100 ML BAG 100 ML IVPB PRN (11:53)
[2018-01-15 14:33] VITALS: BP 142/80
[2018-01-17] MEDS: HEPARIN FLSH (PORT) 500 UN/5ML IVP PRN (14:49)
[2018-01-22 09:19] VITALS: BP 132/76
[2018-01-22 09:23] LABS: PLATELET COUNT, AUTOMATED 82 K/uL (150-450)
[2018-01-29 09:03] VITALS: BP 130/85
[2018-01-29 09:15] LABS: PLATELET COUNT, AUTOMATED 88 K/uL (150-450)
[2018-01-29] MEDS: DEXAMETHASONE SOD PHOS 10MG/ML IVP PRN (10:24)
[2018-01-29] MEDS: LIDOCAINE/SOD BICARB 8.4% SYR ID PRN (10:24)
[2018-01-29] MEDS: PALONOSETRON 0.25 MG/5 ML VIAL IVP PRN (10:24)
[2018-01-29] MEDS: NS(*) 0.9% 500 ML BAG 500 ML IV PRN (13:52)
[2018-01-29] MEDS: DEXTROSE 5%(*) 100 ML BAG 100 ML IVPB PRN (13:52)
[2018-01-31] MEDS: HEPARIN FLSH (PORT) 500 UN/5ML IVP PRN (12:39)
[2018-02-07 14:12] LABS: PLATELET COUNT, AUTOMATED 79 K/uL (150-450)
[2018-02-07 14:15] VITALS: BP 132/70
--- NOTE | 2018-02-08 12:13 | [facility] ONCOLOGY NOTE ---
EVENT DATE: February 07, 2018 DIAGNOSES 1. Stage IV colorectal cancer. 2. Pulmonary metastasis involving both lungs. 3. Hypertension. CHIEF COMPLAINT Patient is here today for followup of his metastatic colon cancer. ONCOLOGY HISTORY Patient is a 77-year-old [place] male who presented with rectal bleeding and lower abdominal pain lately and patient was planned to have a colonoscopy done by Dr. Ceballos, but patient had an issue with emergency in [facility] so he left the [facility] without having the colonoscopy done here in [place]. But he did a colonoscopy there in [facility], and the colonoscopy was done on August 17, 2017 which showed four polyps in the ascending colon and one polyp in the hepatic flexure, and all came back positive for tubular adenoma. There was a mass at the rectosigmoid junction and the biopsy of this mass came back positive for moderately differentiated adenocarcinoma. After he returned back from [facility], patient visited with Dr. Ceballos, who requested a PET/CT scan which was done on September 06, 2017, and the PET/CT scan showed numerous metabolically active parenchymal lung metastases throughout both lungs. There was also irregular locally invasive rectal tumor associated with internal iliac and perirectal lymphadenopathy. The largest circumferential rectal mass demonstrated SUV of 10.8 and left-sided dominant araceli metastasis demonstrated SUV of 5.5. There is no definite hepatic metastasis. Patient had biopsy of the rectal mass by Dr. Ceballos on September 13, 2017, and the pathology came back positive for invasive colonic adenocarcinoma. Pathological markers with NRAS, KRAS, BRAF and microsatellite instability high are still pending. Patient started treatment with FOLFOX on 01 October 2017. HISTORY OF PRESENT ILLNESS The patient is here today for his cycle #9 of chemotherapy with Avastin/FOLFOX for his metastatic colon cancer. He is complaining of extreme fatigue. He has tingling and numbness in the fingers and also in the throat. He has sore throat. He has runny nose and bloody nose. He is not happy at all with the side effects he has from chemotherapy. PAST MEDICAL HISTORY Significant for hypertension. PAST SURGICAL HISTORY Insignificant. FAMILY HISTORY Sister with breast cancer. SOCIAL HISTORY Patient is with two children. 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 He quit smoking 20-30 years ago after less than one pack a day for about 10 years. He drinks about three to four beers at least per week. Denies any abuse of illicit drugs. CURRENT MEDICATIONS 1. Anusol 25 mg suppository b.i.d. 2. Colace 100 mg daily. 3. Lisinopril 10 mg daily. ALLERGIES No known drug allergies. REVIEW OF SYSTEMS CONSTITUTIONAL: No appetite or weight change. No fever, chills or sweating. No recent infection. HEENT: Ears: No tinnitus or hearing problem. Nose: He has nasal discharge and epistaxis. Throat: He has sore throat. No mouth ulcers. Eyes: No diplopia or visual changes. RESPIRATORY: No shortness of breath. No cough, expectoration or hemoptysis. CARDIOVASCULAR: No chest pain, orthopnea, or paroxysmal nocturnal dyspnea (PND). No edema. No palpitations. GASTROINTESTINAL: No nausea or vomiting. No diarrhea or constipation. No change in bowel movements. No heartburn or swallowing difficulties. No abdominal pain. No jaundice. No hematemesis, melena or rectal bleeding. GENITOURINARY: No hematuria or dysuria. MUSCULOSKELETAL: No pain in the muscles, joints or bones. NEUROLOGICAL: He has tingling and numbness in the fingers and throat. No headaches or convulsions. HEMATOLOGIC/LYMPHATIC: No bleeding or easy bruising. He is weak, tired, and fatigued extremely. No enlarged lymph nodes. SKIN: No skin rash or lumps. PSYCHIATRIC: No anxiety or depression. PHYSICAL EXAMINATION GENERAL: Looks stable. Well-developed, well-nourished, and in no acute distress. VITAL SIGNS: Blood pressure 162/70, pulse 64 per minute, respirations 16 per minute, temperature 97.6, pulse oximetry 94% on room air. HEENT: Head: Atraumatic. No sinus tenderness to palpation. Eyes: No icterus or conjunctivitis. Mouth and throat: No oral thrush or mucositis. NECK: Supple. No cervical or supraclavicular lymphadenopathy. LUNGS: Clear to auscultation and percussion bilaterally. HEART: Regular rate and rhythm. No gallops, murmurs, clicks or rubs. ABDOMEN: Soft and lax. No tenderness. No hepatosplenomegaly. No masses. EXTREMITIES: No cyanosis, clubbing or edema. LYMPHATICS: No peripheral lymphadenopathy. NEUROLOGICAL: Conscious, alert and oriented times three. No focal motor or sensory deficits. PSYCHIATRIC: Mood and affect appear normal. SKIN: No skin rash, bruise or purpuric eruption. DIAGNOSTIC/LABORATORY STUDIES CBC shows a white count of 20.7, hemoglobin 14.8, hematocrit 45, platelets 79,000. Chem panel totally normal except alkaline phosphatase 139. His CEA was 4.4. ASSESSMENT 1. Stage IV colorectal cancer with pulmonary metastasis involving in both lungs. Patient had a colonoscopy done in [facility], August 12, 2017, and four polyps from the ascending colon and one polyp from the hepatic flexure all came back positive for tubular adenoma. There was a mass at the rectosigmoid junction, and the biopsy of that mass came back positive for moderately differentiated adenocarcinoma. PET/CT scan done September 06, 2017 did reveal the presence of numerous metabolically active parenchymal metastasis throughout both lungs. The irregularly local invasive rectal tumor associated with internal iliac and perirectal lymphadenopathy was also noted. There was also no hepatic metastasis. Patient has been seen by Dr. Ceballos, who placed a central port and did a colonoscopy, and the biopsy of the rectal mass done September 10, 2017, was done, and the pathology came back positive for invasive colonic adenocarcinoma. Pathological markers with KRAS, NRAS, BRAF, and the microsatellite instability high all were done, and the result came back negative for NRAS, BRAF, KRAS, and the microsatellite instability high. His pre-chemotherapy CEA was 3.5. The patient started chemotherapy with FOLFOX October 01, 2017, and he had problem with the treatment, especially thrombocytopenia, but the patient also was having alcohol intoxication. He finished eight cycles so far, and he is due for his ninth cycle on the February 12, 2018, and the patient is extremely weak, tired, and fatigued, and for this reason and because of the thrombocytopenia and the neuropathy, I am planning to omit the oxaliplatin from his treatment, so I am planning to proceed with Avastin, 5-FU, and leucovorin. Hopefully, this treatment will be easy on him. I will see him in two weeks from now with CBC, chem panel, and CEA. Hopefully, patient will agree to continue his chemotherapy in the future. 2. Chemotherapy-induced thrombocytopenia. Current platelet count 79,000. I am planning to omit oxaliplatin from the treatment, and hopefully, this will help his platelet count. 3. Neutrophilic leukocytosis, most probably due to Neulasta effect. 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 I am planning to omit oxaliplatin from his treatment. PLAN 1. Avastin, 5-FU, leucovorin on February 12, 2018. This will be cycle #9. 2. CBC, chem panel to be checked weekly. 3. Patient to return in two weeks with CBC, chem plane, and CEA. 4. Patient to contact us for any new concerns or complaints. MTDD
[2018-02-12] MEDS: LIDOCAINE/SOD BICARB 8.4% SYR ID PRN (09:08)
[2018-02-12] MEDS: NS(*) 0.9% 500 ML BAG 500 ML IV PRN (09:08)
[2018-02-12 09:09] VITALS: BP 128/82
[2018-02-12] MEDS: PALONOSETRON 0.25 MG/5 ML VIAL IVP PRN (09:58)
[2018-02-12] MEDS: DEXAMETHASONE SOD PHOS 10MG/ML IVP PRN (10:01)
[2018-02-12] MEDS: DEXTROSE 5%(*) 100 ML BAG 100 ML IVPB PRN (11:15)
[2018-02-12 13:26] VITALS: BP 149/87
[2018-02-14] MEDS: HEPARIN FLSH (PORT) 500 UN/5ML IVP PRN (15:44)
[2018-02-21 14:03] VITALS: BP 135/77
[2018-02-21 14:25] LABS: PLATELET COUNT, AUTOMATED 83 K/uL (150-450)
--- NOTE | 2018-02-22 03:01 | EL-[facility] ONCOLOGY NOTE ---
EVENT DATE: February 21, 2018 DIAGNOSES 1. Stage IV colorectal cancer. 2. Pulmonary metastasis involving both lungs. 3. Hypertension. CHIEF COMPLAINT Patient is here today for followup of his metastatic colon cancer. ONCOLOGY HISTORY Patient is a 77-year-old [place] male who presented with rectal bleeding and lower abdominal pain lately and patient was planned to have a colonoscopy done by Dr. Ceballos, but patient had an issue with emergency in [facility] so he left the [facility] without having the colonoscopy done here in [place]. But he did a colonoscopy there in [facility], and the colonoscopy was done on August 17, 2017 which showed four polyps in the ascending colon and one polyp in the hepatic flexure, and all came back positive for tubular adenoma. There was a mass at the rectosigmoid junction and the biopsy of this mass came back positive for moderately differentiated adenocarcinoma. After he returned back from [facility], patient visited with Dr. Ceballos, who requested a PET/CT scan which was done on September 06, 2017, and the PET/CT scan showed numerous metabolically active parenchymal lung metastases throughout both lungs. There was also irregular locally invasive rectal tumor associated with internal iliac and perirectal lymphadenopathy. The largest circumferential rectal mass demonstrated SUV of 10.8 and left-sided dominant araceli metastasis demonstrated SUV of 5.5. There is no definite hepatic metastasis. Patient had biopsy of the rectal mass by Dr. Ceballos on September 13, 2017, and the pathology came back positive for invasive colonic adenocarcinoma. Pathological markers with NRAS, KRAS, BRAF and microsatellite instability high are still pending. Patient started treatment with FOLFOX on 01 October 2017. HISTORY OF PRESENT ILLNESS The patient is here today for his cycle #10 of chemotherapy with Avastin/5FU/leucovorin for his metastatic colon cancer. He is feeling better after omitting oxaliplatin from his chemotherapy. He is complaining of occasional epistaxis. He has some tingling and numbness in his hands. He is weak, tired, and fatigued, but other than that, he is really feeling better than before after omitting oxaliplatin. PAST MEDICAL HISTORY Significant for hypertension. PAST SURGICAL HISTORY Insignificant. FAMILY HISTORY Sister with breast cancer. SOCIAL HISTORY Patient is with two children. 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 He quit smoking 20-30 years ago after less than one pack a day for about 10 years. He drinks about three to four beers at least per week. Denies any abuse of illicit drugs. CURRENT MEDICATIONS 1. Anusol 25 mg suppository b.i.d. 2. Colace 100 mg daily. 3. Lisinopril 10 mg daily. ALLERGIES NO KNOWN DRUG ALLERGIES, REVIEW OF SYSTEMS CONSTITUTIONAL: No appetite or weight change. No fever, chills or sweating. No recent infection. HEENT: Ears: No tinnitus or hearing problem. Nose: He has occasional epistaxis. Throat: No sore throat or mouth ulcers. Eyes: No diplopia or visual changes. RESPIRATORY: No shortness of breath. No cough, expectoration or hemoptysis. CARDIOVASCULAR: No chest pain, orthopnea, or paroxysmal nocturnal dyspnea (PND). No edema. No palpitations. GASTROINTESTINAL: No nausea or vomiting. No diarrhea or constipation. No change in bowel movements. No heartburn or swallowing difficulties. No abdominal pain. No jaundice. No hematemesis, melena or rectal bleeding. GENITOURINARY: No hematuria or dysuria. MUSCULOSKELETAL: No pain in the muscles, joints or bones. NEUROLOGICAL: He has tingling and numbness in the hands, which is getting better. HEMATOLOGIC/LYMPHATIC: He is weak, tired, and fatigued. SKIN: He has skin pigmentation at the tips of the fingers from his chemotherapy. PSYCHIATRIC: No anxiety or depression. PHYSICAL EXAMINATION GENERAL: Looks stable. Well-developed, well-nourished, and in no acute distress. VITAL SIGNS: Blood pressure 135/77, pulse 70 per minute, respirations 16 per minute, temperature 96.9, pulse oximetry 90% on room air. HEENT: Head: Atraumatic. No sinus tenderness to palpation. Eyes: No icterus or conjunctivitis. Mouth and throat: No oral thrush or mucositis. NECK: Supple. No cervical or supraclavicular lymphadenopathy. LUNGS: Clear to auscultation and percussion bilaterally. HEART: Regular rate and rhythm. No gallops, murmurs, clicks or rubs. ABDOMEN: Soft and lax. No tenderness. No hepatosplenomegaly. No masses. EXTREMITIES: No cyanosis, clubbing or edema. LYMPHATICS: No peripheral lymphadenopathy. NEUROLOGICAL: Conscious, alert and oriented times three. No focal motor or sensory deficits. PSYCHIATRIC: Mood and affect appear normal. SKIN: No skin rash, bruise or purpuric eruption. DIAGNOSTIC DATA CBC showed white count of 20.3, hemoglobin 15.7, hematocrit 47.4, platelet 83,000. Chem panel shows normal except blood sugar 117, alkaline phosphatase 139. CEA 3.6, which is down from 4.4. ASSESSMENT 1. 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 Patient had a colonoscopy done in [facility] on August 12, 2017, and four polyps from the ascending colon and one polyp from the hepatic flexure all came back positive for tubular adenoma. There was a mass at the rectosigmoid junction, and biopsy of that mass came back positive for moderately differentiated adenocarcinoma. PET/CT scan done September 06, 2017, did reveal the presence of numerous metabolically active parenchymal metastases throughout both lungs. An irregular locally invasive rectal tumor associated with internal iliac and perirectal lymphadenopathy was also noted. There was also no hepatic metastasis. Patient has been seen by Dr. Ceballos, who placed a central port and did a colonoscopy, and biopsy of the rectal mass done September 10, 2017, was done, and pathology came back positive for invasive colonic adenocarcinoma. Pathological markers with KRAS, NRAS, BRAF, and microsatellite instability high were done, which came back negative. Prechemotherapy CEA was 3.5. Patient was started on chemotherapy with FOLFOX on October 01, 2017, and his treatment was complicated by thrombocytopenia, but the patient was also drinking alcohol heavily during the same period of time. He finished eight cycles with FOLFOX regimen, and with his ninth cycle on 13 August 2017, oxaliplatin was omitted from his treatment, and he tolerated treatment much better. I am planning to proceed with his tenth cycle at this time, which is scheduled on 26 February 2018, and I will see him in two weeks with CBC, chem panel, and CEA. 2. Chemotherapy-induced thrombocytopenia. Current platelet count 83,000, which is stable. I think this will be the best line for the patient. 3. Neutrophilic leukocytosis, most probably due to Neulasta effect. Current white count 20.3. 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 PLAN 1. Avastin/5FU/leucovorin, February 26, 2018. This will be cycle #10. 2. CBC and chem panel to be checked weekly. 3. Patient to return in two weeks with CBC, chem panel, and CEA. 4. Patient to contact us for any new concerns or complaints. MTDD
[~2018-02-26] VITALS: Ht 168.4 cm; Wt 80.9 kg
[~2018-02-26 08:59] MED LIST changes: +ACET500T68 PO; +D5W IV ONE; -FLUOROURACIL 50 MG/ML SDV IV ONE; +LEUCOVORIN CALCIUM IV ONE; -LISINOPRIL 10 MG TAB PO ONE; +[UNRECOGNIZED DRUG - OTHER] IV ONE
[2018-02-26 09:15] VITALS: BP 130/85
[2018-02-26] MEDS: NS(*) 0.9% 500 ML BAG 500 ML IV PRN (09:17)
[2018-02-26] MEDS: PALONOSETRON 0.25 MG/5 ML VIAL IVP PRN (10:16)
[2018-02-26] MEDS: DEXAMETHASONE SOD PHOS 10MG/ML IVP PRN (10:16)
[2018-02-26] MEDS ORDERED: LEUCOVORIN CAL IV ONE (10:45)
[2018-02-26] MEDS ORDERED: BEVACIZUMAB IVPB ONE (10:45)
[2018-02-26] MEDS ORDERED: LEUCOVORIN CALCIUM IV ONE (10:45)
[2018-02-26] MEDS ORDERED: [UNRECOGNIZED DRUG - OTHER] IV ONE (10:45)
[2018-02-26] MEDS ORDERED: NS 0.9% IVPB ONE (10:45)
[2018-02-26] MEDS: DEXTROSE 5%(*) 100 ML BAG 100 ML IVPB PRN (11:22)
[2018-02-26] MEDS ORDERED: NS 0.9% IV ONE (12:00)
[2018-02-26] MEDS ORDERED: FLUOROURACIL IV ONE (12:00)
[2018-02-26 13:47] VITALS: BP 158/87
[2018-02-28 12:51] VITALS: BP 137/73
[2018-02-28] MEDS: HEPARIN FLSH (PORT) 500 UN/5ML IVP PRN (12:54)
[2018-02-28] MEDS ORDERED: PEGFILGRASTIM 6 MG/0.6 ML SYR SUBQ ONE (13:00)
== END 2018-03-06 ==
LOC: ONC 08:59
PROVIDERS: ATTEND Internal Medicine Hematology
DX: Z51.11 Encounter for antineoplastic chemotherapy (principal); C20 Malignant neoplasm of rectum; I10 Essential (primary) hypertension; C78.02 Secondary malignant neoplasm of left lung; C78.01 Secondary malignant neoplasm of right lung; Z87.891 Personal history of nicotine dependence; D69.59 Other secondary thrombocytopenia
CPT/HCPCS: 36415; 81001; 82378; 85025; 85027; 96366; 96367; 96368; 96372; 96375; 96411; 96413; 96415; 96416; 96417; G0463; J0640; J1100; J1642; J2469; J2505; J7040; J7050; J7060; J9035; J9263; 82040; 82247; 82310; 82374; 82435; 82565; 82947; 84075; 84132; 84155; 84295; 84450; 84460; 84520; 99212; J9190

== ENCOUNTER 2018-04-26 10:01 | Outpatient (RCR) | payer MEDICARE ==
[2018-03-07 11:43] VITALS: BP 123/80
[2018-03-07 11:44] LABS: PLATELET COUNT, AUTOMATED 84 K/uL (150-450)
--- NOTE | 2018-03-08 04:09 | [facility] ONCOLOGY NOTE ---
EVENT DATE: March 07, 2018 DIAGNOSES 1. Stage IV colorectal cancer. 2. Pulmonary metastasis involving both lungs. 3. Hypertension. CHIEF COMPLAINT Patient is here today for followup of his metastatic colon cancer. ONCOLOGY HISTORY Patient is a 77-year-old [place] male who presented with rectal bleeding and lower abdominal pain lately and patient was planned to have a colonoscopy done by Dr. Ceballos, but patient had an issue with emergency in [facility] so he left the [facility] without having the colonoscopy done here in [place]. But he did a colonoscopy there in [facility], and the colonoscopy was done on August 17, 2017 which showed four polyps in the ascending colon and one polyp in the hepatic flexure, and all came back positive for tubular adenoma. There was a mass at the rectosigmoid junction and the biopsy of this mass came back positive for moderately differentiated adenocarcinoma. After he returned back from [facility], patient visited with Dr. Ceballos, who requested a PET/CT scan which was done on September 06, 2017, and the PET/CT scan showed numerous metabolically active parenchymal lung metastases throughout both lungs. There was also irregular locally invasive rectal tumor associated with internal iliac and perirectal lymphadenopathy. The largest circumferential rectal mass demonstrated SUV of 10.8 and left-sided dominant araceli metastasis demonstrated SUV of 5.5. There is no definite hepatic metastasis. Patient had biopsy of the rectal mass by Dr. Ceballos on September 13, 2017, and the pathology came back positive for invasive colonic adenocarcinoma. Pathological markers with NRAS, KRAS, BRAF and microsatellite instability high are still pending. Patient started treatment with FOLFOX on 01 October 2017. HISTORY OF PRESENT ILLNESS The patient is here today for his cycle #11 of chemotherapy with Avastin/5FU/leucovorin for his metastatic colon cancer. He felt better after we took him off oxaliplatin. He has occasional epistaxis. His neuropathy is getting better, as is the pigmentation of his fingers. His fatigue is also getting better. PAST MEDICAL HISTORY Significant for hypertension. PAST SURGICAL HISTORY Insignificant. FAMILY HISTORY Sister with breast cancer. SOCIAL HISTORY Patient is with two children. 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 He quit smoking 20-30 years ago after less than one pack a day for about 10 years. He drinks about three to four beers at least per week. Denies any abuse of illicit drugs. CURRENT MEDICATIONS 1. Anusol 25 mg suppository b.i.d. 2. Colace 100 mg daily. 3. Lisinopril 10 mg daily. ALLERGIES NO KNOWN DRUG ALLERGIES, REVIEW OF SYSTEMS CONSTITUTIONAL: No appetite or weight change. No fever, chills or sweating. No recent infection. HEENT: Ears: No tinnitus or hearing problem. Nose: He has epistaxis occasionally. Throat: No sore throat or mouth ulcers. Eyes: No diplopia or visual changes. RESPIRATORY: No shortness of breath. No cough, expectoration or hemoptysis. CARDIOVASCULAR: No chest pain, orthopnea, or paroxysmal nocturnal dyspnea (PND). No edema. No palpitations. GASTROINTESTINAL: No nausea or vomiting. No diarrhea or constipation. No change in bowel movements. No heartburn or swallowing difficulties. No abdominal pain. No jaundice. No hematemesis, melena or rectal bleeding. GENITOURINARY: No hematuria or dysuria. MUSCULOSKELETAL: No pain in the muscles, joints or bones. NEUROLOGICAL: He has numbness in his fingers, which is getting better. HEMATOLOGIC/LYMPHATIC: He is weak, tired, and fatigued. SKIN: No skin rash or lumps. PSYCHIATRIC: No anxiety or depression. PHYSICAL EXAMINATION GENERAL: Looks stable. Well-developed, well-nourished, and in no acute distress. VITAL SIGNS: Blood pressure 125/71, pulse 65 per minute, respirations 16 per minute, temperature 97.6, pulse oximetry 96% on room air. HEENT: Head: Atraumatic. No sinus tenderness to palpation. Eyes: No icterus or conjunctivitis. Mouth and throat: No oral thrush or mucositis. NECK: Supple. No cervical or supraclavicular lymphadenopathy. LUNGS: Clear to auscultation and percussion bilaterally. HEART: Regular rate and rhythm. No gallops, murmurs, clicks or rubs. ABDOMEN: Soft and lax. No tenderness. No hepatosplenomegaly. No masses. EXTREMITIES: No cyanosis, clubbing or edema. LYMPHATICS: No peripheral lymphadenopathy. NEUROLOGICAL: Conscious, alert and oriented times three. No focal motor or sensory deficits. PSYCHIATRIC: Mood and affect appear normal. SKIN: No skin rash, bruise or purpuric eruption. DIAGNOSTIC DATA CBC showed white count of 8.9, hemoglobin 15.8, hematocrit 47.8, platelet 88,000. Chem panel is totally normal. CEA is 3.4, down from 3.6. ASSESSMENT 1. 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 Patient had a colonoscopy done in [facility] on August 12, 2017, and four polyps from the ascending colon and one polyp from the hepatic flexure all came back positive for tubular adenoma. There was a mass at the rectosigmoid junction, and biopsy of that mass came back positive for moderately differentiated adenocarcinoma. PET/CT scan done September 06, 2017, did reveal the presence of numerous metabolically active parenchymal metastases throughout both lungs. An irregular locally invasive rectal tumor associated with internal iliac and perirectal lymphadenopathy was also noted. There was no hepatic metastasis. Patient has been seen by Dr. Ceballos, who placed a central port and did a colonoscopy and biopsy of the rectal mass done September 10, 2017, was done, and pathology came back positive for invasive colonic adenocarcinoma. Pathological markers with KRAS, NRAS, BRAF, and microsatellite instability high were done, which came back negative. Prechemotherapy CEA was 3.5. Patient was started on chemotherapy with FOLFOX on October 01, 2017, and his treatment was complicated by thrombocytopenia, but the patient continued to drink alcohol during this period of time. He finished eight cycles of FOLFOX regimen, and with his ninth cycle on 13 August 2017, oxaliplatin was omitted from his treatment, and the patient is tolerating treatment much better currently. His CEA dropped from 3.6 and currently is 3.4. I am planning to proceed with his cycle #11 of Avastin/5FU/leucovorin as per schedule on 11 March 2018. I am planning to see him again in two weeks with CBC, chem panel, and CEA. 2. Chemotherapy-induced thrombocytopenia. Current platelet count 88,000, which is stable. I will continue to monitor. 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 PLAN 1. Avastin/5FU/leucovorin, March 11, 2018. This will be cycle #11. 2. CBC and chem panel to be checked weekly. 3. Patient to return in two weeks with CBC, chem panel, and CEA. 4. Patient to contact us for any new concerns or complaints. MTDD
[2018-03-11] MEDS: NS(*) 0.9% 500 ML BAG 500 ML IV PRN (09:15)
[2018-03-11] MEDS: LIDOCAINE/SOD BICARB 8.4% SYR ID PRN (09:15)
[2018-03-11 09:16] VITALS: BP 150/78
[2018-03-11] MEDS: PALONOSETRON 0.25 MG/5 ML VIAL IVP PRN (09:59)
[2018-03-13 11:47] VITALS: BP 120/72
[2018-03-13] MEDS: HEPARIN FLSH (PORT) 500 UN/5ML IVP PRN (11:57)
[2018-03-21 14:27] LABS: PLATELET COUNT, AUTOMATED 85 K/uL (150-450)
[2018-03-21 15:01] VITALS: BP 131/68
--- NOTE | 2018-03-21 19:12 | ONCOLOGY FOLLOW UP NOTE ---
EVENT DATE: March 21, 2018 CHIEF COMPLAINT Followup for stage IV colon cancer. HISTORY OF PRESENT ILLNESS Patient is a 77-year-old male who was seen today in anticipation of cycle #12 of Avastin, 5-FU, and leucovorin. He is grateful to be finishing his treatments. His cold intolerance has resolved. He has mild peripheral neuropathy, but states that it has improved. The discoloration of his fingers has also lightened considerably. He does have some mild fatigue, but "nothing like before." He remains active and has less fatigue. ONCOLOGY HISTORY Patient is a 77-year-old [place] male who presented with rectal bleeding and lower abdominal pain lately, and patient was planned to have a colonoscopy done by Dr. Ceballos, but patient had an issue with an emergency in [facility], so he left for [facility] without having the colonoscopy done here in [place]. He did a colonoscopy there in [facility], and the colonoscopy was done on August 17, 2017, which showed four polyps in the ascending colon and one polyp in the hepatic flexure, and all came back positive for tubular adenoma. There was a mass at the rectosigmoid junction, and the biopsy of this mass came back positive for moderately differentiated adenocarcinoma. After he returned back from [facility], patient visited with Dr. Ceballos, who requested a PET CT scan which was done on September 06, 2017, and the PET CT scan showed numerous metabolically active parenchymal lung metastases throughout both lungs. There was also irregular, locally invasive rectal tumor associated with internal iliac and perirectal lymphadenopathy. The largest circumferential rectal mass demonstrated SUV of 10.8, and left-sided dominant araceli metastasis demonstrated SUV of 5.5. There was no definite hepatic metastasis. Patient had biopsy of the rectal mass by Dr. Ceballos on September 13, 2017, and the pathology came back positive for invasive colonic adenocarcinoma. NRAS, KRAS, BRAF were all negative. Patient started treatment with FOLFOX and Avastin on 01 October 2017. Completed eight cycles. Oxaliplatin was discontinued with cycle #9 of treatment. PAST MEDICAL HISTORY Significant for hypertension. PAST SURGICAL HISTORY Insignificant. FAMILY HISTORY Sister with breast cancer. SOCIAL HISTORY Patient is with two children. 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 He quit smoking 20-30 years ago after less than one pack a day for about 10 years. He drinks about three to four beers at least per week. Denies any abuse of illicit drugs. CURRENT MEDICATIONS 1. Anusol 25 mg suppository b.i.d. 2. Colace 100 mg daily. 3. Lisinopril 10 mg daily. ALLERGIES No known drug allergies. REVIEW OF SYSTEMS A 12-point review of systems is performed and is negative except as stated above. PHYSICAL EXAMINATION VITAL SIGNS: Weight 82 kg. BP 131/68, P 84, R 16, temp 97.4, O2 sat 91%. GENERAL: Patient is a well-developed, well-nourished male in no acute distress. HEAD: Normocephalic, atraumatic. EYES: Sclerae anicteric. MOUTH: Moist mucous membranes. No lesions. NECK: Supple. No palpable adenopathy. CARDIOVASCULAR: Heart rate regular, 84 per minute, without murmur, S3, or S4. LUNGS: Clear bilaterally. EXTREMITIES: No edema. NEUROLOGIC: Nonfocal. LABORATORIES CBC today reveals WBC of 19.5, hemoglobin 15.1, hematocrit 46.0, platelets 85,000. CMP is pending. IMPRESSION AND PLAN The patient is a 77-year-old male with stage IV colon cancer with pulmonary metastases involving both lungs. He began treatment with FOLFOX and Avastin on October 01, 2017, and completed eight cycles. Oxaliplatin was dropped with cycle #9 of treatment due to toxicity. 1. Cycle #12 of 5-FU, leucovorin, and Avastin on 03/25/18. 2. Thrombocytopenia. This has been mild, but stable. He denies any significant bleeding or bruising. We discussed these precautions. 3. Patient will continue with weekly CBC and CMP. 4. He will be seen by Dr. Mendoza on 04/19/18. We will likely schedule either CT of the chest, abdomen, and pelvis or PET scan to assess response to treatment before that visit. MTDD
[2018-03-25 09:02] VITALS: BP 114/82
[2018-03-25] MEDS: PALONOSETRON 0.25 MG/5 ML VIAL IVP PRN (10:46)
[2018-03-25] MEDS: LIDOCAINE/SOD BICARB 8.4% SYR ID PRN (10:46)
[2018-03-25] MEDS: NS(*) 0.9% 500 ML BAG 500 ML IV PRN (10:47)
[2018-03-27] MEDS: HEPARIN FLSH (PORT) 500 UN/5ML IVP PRN (12:50)
[2018-04-04 14:08] VITALS: BP 140/80
[2018-04-04 14:35] LABS: PLATELET COUNT, AUTOMATED 78 K/uL (150-450)
[2018-04-11 14:26] LABS: PLATELET COUNT, AUTOMATED 108 K/uL (150-450)
[2018-04-11 14:28] VITALS: BP 138/62
[2018-04-19 09:15] VITALS: BP 184/94
[2018-04-19 09:24] LABS: PLATELET COUNT, AUTOMATED 99 K/uL (150-450)
--- NOTE | 2018-04-19 10:48 | [facility] ONCOLOGY NOTE ---
EVENT DATE: April 19, 2018 DIAGNOSES 1. Stage IV colorectal cancer. 2. Pulmonary metastasis involving both lungs. 3. Hypertension. CHIEF COMPLAINT Patient is here today for followup of his metastatic colon cancer. ONCOLOGY HISTORY Patient is a 77-year-old [place] male who presented with rectal bleeding and lower abdominal pain lately and patient was planned to have a colonoscopy done by Dr. Ceballos, but patient had an issue with emergency in [facility] so he left the [facility] without having the colonoscopy done here in [place]. But he did a colonoscopy there in [facility], and the colonoscopy was done on August 17, 2017 which showed four polyps in the ascending colon and one polyp in the hepatic flexure, and all came back positive for tubular adenoma. There was a mass at the rectosigmoid junction and the biopsy of this mass came back positive for moderately differentiated adenocarcinoma. After he returned back from [facility], patient visited with Dr. Ceballos, who requested a PET/CT scan which was done on September 06, 2017, and the PET/CT scan showed numerous metabolically active parenchymal lung metastases throughout both lungs. There was also irregular locally invasive rectal tumor associated with internal iliac and perirectal lymphadenopathy. The largest circumferential rectal mass demonstrated SUV of 10.8 and left-sided dominant araceli metastasis demonstrated SUV of 5.5. There is no definite hepatic metastasis. Patient had biopsy of the rectal mass by Dr. Ceballos on September 13, 2017, and the pathology came back positive for invasive colonic adenocarcinoma. Pathological markers with NRAS, KRAS, BRAF and microsatellite instability high are still pending. Patient started treatment with FOLFOX on October 01, 2017. Patient completed 12 courses of chemotherapy on March 25, 2018, with omission of oxaliplatin in the last few cycles of chemotherapy. HISTORY OF PRESENT ILLNESS The patient is here today for his metastatic colon cancer. He finished 12 courses of chemotherapy. He has some nasal discharge and some nasal bleeding on blowing his nose. His neuropathy and the pigmentation of the skin are getting better currently. Other than that, he is really doing much better after we took oxaliplatin off his treatment. PAST MEDICAL HISTORY Significant for hypertension. PAST SURGICAL HISTORY Insignificant. FAMILY HISTORY Sister with breast cancer. SOCIAL HISTORY Patient is with two children. 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 He quit smoking 20-30 years ago after less than one pack a day for about 10 years. He drinks about three to four beers at least per week. Denies any abuse of illicit drugs. CURRENT MEDICATIONS 1. Anusol 25 mg suppository b.i.d. 2. Colace 100 mg daily. 3. Lisinopril 10 mg daily. ALLERGIES NO KNOWN DRUG ALLERGIES, REVIEW OF SYSTEMS CONSTITUTIONAL: No appetite or weight change. No fever, chills or sweating. No recent infection. HEENT: Ears: No tinnitus or hearing problem. Nose: He has some nasal discharge and epistaxis. Throat: No sore throat or mouth ulcers. Eyes: No diplopia or visual changes. RESPIRATORY: No shortness of breath. No cough, expectoration or hemoptysis. CARDIOVASCULAR: No chest pain, orthopnea, or paroxysmal nocturnal dyspnea (PND). No edema. No palpitations. GASTROINTESTINAL: No nausea or vomiting. No diarrhea or constipation. No change in bowel movements. No heartburn or swallowing difficulties. No abdominal pain. No jaundice. No hematemesis, melena or rectal bleeding. GENITOURINARY: No hematuria or dysuria. MUSCULOSKELETAL: No pain in the muscles, joints or bones. NEUROLOGICAL: His neuropathy is getting better after taking oxaliplatin off his treatment.. HEMATOLOGIC/LYMPHATIC: He is weak, tired, and fatigued. SKIN: His skin pigmentation is also getting better. PSYCHIATRIC: No anxiety or depression. PHYSICAL EXAMINATION GENERAL: Looks stable. Well-developed, well-nourished, and in no acute distress. VITAL SIGNS: Blood pressure 184/94, pulse 61 per minute, respirations 16 per minute, temperature 96.6, pulse oximetry 93% on room air. HEENT: Head: Atraumatic. No sinus tenderness to palpation. Eyes: No icterus or conjunctivitis. Mouth and throat: No oral thrush or mucositis. NECK: Supple. No cervical or supraclavicular lymphadenopathy. LUNGS: Clear to auscultation and percussion bilaterally. HEART: Regular rate and rhythm. No gallops, murmurs, clicks or rubs. ABDOMEN: Soft and lax. No tenderness. No hepatosplenomegaly. No masses. EXTREMITIES: No cyanosis, clubbing or edema. LYMPHATICS: No peripheral lymphadenopathy. NEUROLOGICAL: Conscious, alert and oriented times three. No focal motor or sensory deficits. PSYCHIATRIC: Mood and affect appear normal. SKIN: No skin rash, bruise or purpuric eruption. DIAGNOSTIC DATA CBC showed white count of 8.5, hemoglobin 16.7, hematocrit 50.3, platelet 108,000. Chem panel is totally normal except blood sugar 134. CEA is normal at 2.7. ASSESSMENT 1. 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 Patient had a colonoscopy done in [facility] on August 12, 2017, and four polyps from the ascending colon and one polyp from the hepatic flexure all came back positive for tubular adenoma. There was a mass at the rectosigmoid junction and biopsy of that mass came back positive for moderately differentiated adenocarcinoma. PET/CT scan done September 06, 2017, did reveal the presence of numerous metabolically active parenchymal metastases throughout the lungs. An irregular locally invasive colorectal tumor associated with internal iliac and perirectal lymphadenopathy was also noted. There was no hepatic metastasis. Patient has been seen by Dr. Ceballos, who placed a central port and did a colonoscopy and biopsy of the rectal mass done September 10, 2017, and pathology came back positive for invasive colonic adenocarcinoma. Pathological markers with KRAS, NRAS, BRAF, and microsatellite instability high were done, which came back negative. Prechemotherapy CEA was 3.5. Patient received 12 courses of chemotherapy initially with FOLFOX, started on October 01, 2017 and completed on March 25, 2018. He finished 8 cycles of FOLFOX and the last 4 cycles were with Avastin and 5-FU leucovorin. His CEA dropped from 3.6 and currently 2.7. Patient does not like to have anymore chemotherapy. I am planning to get at PET CT scan for further evaluation and I will see him in a week to decide about further management. I explained that to the patient and he is agreeable with the plan of management. 2. Chemotherapy-induced thrombocytopenia. Current platelet count 108,000. I will continue to monitor. 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 PLAN 1. PET CT scan. 2. Patient to return in one week for further evaluation and management. 3. Patient to contact us for any new concerns or complaints. MTDD
[~2018-04-26] VITALS: Ht 168.9 cm; Wt 82.1 kg
[~2018-04-26 10:01] MED LIST changes: +BEVACIZUMAB IVPB PRN; +D5W IV PRN; -D5W IVPB ONE; +DEXAMETHASONE SOD PHOS 10MG/ML IVP ONE; +DEXAMETHASONE SOD(*) 10MG/ML 10 MG in NS(*) 0.9% 50 ML BAG 50 ML IVP PRN; +DEXTROSE 5%(*) 100 ML BAG 100 ML IVPB PRN; -FLUOROURACIL 50 MG/ML SDV IVP ONE; +FLUOROURACIL IV PRN; +INFLUENZA VIRUS VAC 0.5ML SYR IM ONLY ONE; +LEUCOVORIN CAL IV PRN; -LEUCOVORIN CALCIUM IV ONE; -LEUCOVORIN IV ONE; +NS 0.9% IV PRN; +NS 0.9% IVPB PRN; -OXALIPLATIN IVPB ONE; +PEGFILGRASTIM 6 MG/0.6 ML SYR SUBQ PRN; -[UNRECOGNIZED DRUG - OTHER] IV ONE; -[UNRECOGNIZED DRUG - OTHER] IV ONE
[2018-04-26 10:03] VITALS: BP 170/94
[2018-04-26 10:14] LABS: PLATELET COUNT, AUTOMATED 88 K/uL (150-450)
[2018-04-26] MEDS: LIDOCAINE/SOD BICARB 8.4% SYR ID PRN (10:19)
[2018-04-26] MEDS: HEPARIN FLSH (PORT) 500 UN/5ML IVP PRN (10:20)
--- NOTE | 2018-04-26 12:44 | ONCOLOGY FOLLOW UP NOTE ---
EVENT DATE: April 26, 2018 CHIEF COMPLAINT Followup for stage IV colon cancer. HISTORY OF PRESENT ILLNESS Patient is an 78-year-old male who was seen today in followup. He completed his 12 cycles of chemotherapy on March 25, 2018. He presents today to review the results of recent PET scan. He overall feels much better. Energy has improved. Discoloration of his fingers continues to lighten. He has mild peripheral neuropathy believes this is also improving. He denies any other new complaints. ONCOLOGY HISTORY Patient is an 78-year-old Palestinian male who presented with rectal bleeding and lower abdominal pain lately, and patient was planned to have a colonoscopy done by Dr. Ceballos, but patient had an issue with an emergency in [facility], so he left for [facility] without having the colonoscopy done here in [place]. He did a colonoscopy there in [facility], and the colonoscopy was done on August 17, 2017, which showed four polyps in the ascending colon and one polyp in the hepatic flexure, and all came back positive for tubular adenoma. There was a mass at the rectosigmoid junction, and the biopsy of this mass came back positive for moderately differentiated adenocarcinoma. After he returned back from [facility], patient visited with Dr. Ceballos, who requested a PET CT scan which was done on September 06, 2017, and the PET CT scan showed numerous metabolically active parenchymal lung metastases throughout both lungs. There was also irregular, locally invasive rectal tumor associated with internal iliac and perirectal lymphadenopathy. The largest circumferential rectal mass demonstrated SUV of 10.8, and left-sided dominant araceli metastasis demonstrated SUV of 5.5. There was no definite hepatic metastasis. Patient had biopsy of the rectal mass by Dr. Ceballos on September 13, 2017, and the pathology came back positive for invasive colonic adenocarcinoma. NRAS, KRAS, BRAF were all negative. Patient started treatment with FOLFOX and Avastin on 01 October 2017. Completed eight cycles. Oxaliplatin was discontinued with cycle #9 of treatment. Completed a total of 12 cycles of treatment with 5-FU and Avastin on March 25, 2018. PAST MEDICAL HISTORY Significant for hypertension. PAST SURGICAL HISTORY Insignificant. FAMILY HISTORY Sister with breast cancer. SOCIAL HISTORY Patient is with two children. 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 He quit smoking 20-30 years ago after less than one pack a day for about 10 years. He drinks about three to four beers at least per week. Denies any abuse of illicit drugs. CURRENT MEDICATIONS 1. Anusol 25 mg suppository b.i.d. 2. Colace 100 mg daily. 3. Lisinopril 10 mg daily (not taking). ALLERGIES No known drug allergies. REVIEW OF SYSTEMS A 12-point review of systems is performed and is negative except as stated above. PHYSICAL EXAMINATION VITAL SIGNS: Weight 82.1 kg. BP 170/94, P 66, R 16, temp 97.4, O2 sat 95%. GENERAL: Patient is a well-developed, well-nourished male in no acute distress. HEAD: Normocephalic, atraumatic. EYES: Sclerae anicteric. MOUTH: Moist mucous membranes. No lesions. NECK: Supple. No palpable adenopathy. LUNGS: Clear bilaterally. CARDIOVASCULAR: Heart rate regular, 66 per minute, without murmur, S3, or S4. EXTREMITIES: No edema. NEUROLOGIC: Nonfocal. SKIN: Continued discoloration on fingertips, overall improved. LABORATORIES CBC today reveals a WBC of 6.7, hemoglobin 16.6, hematocrit 50.3, platelets 88,000. CMP is within normal limits except for a slightly elevated bilirubin of 1.4. CEA is pending. IMPRESSION AND PLAN The patient is an 78-year-old male with stage IV colon cancer with pulmonary metastases involving both lungs. He began treatment with FOLFOX and Avastin on October 01, 2017, and completed eight cycles. Oxaliplatin was dropped with cycle #9 due to toxicity. He completed a total of 12 cycles with 5-FU and Avastin on March 25, 2018. 1. Stage IV colon cancer. Patient is here to review the results of the PET scan. PET scan on April 24, 2018, showed overall improvement in the pulmonary nodules. The right lower lobe nodule still measured 1.7 cm with an SUV of 4.9 (previously 17.0) Right upper lobe nodule was smaller at 0.7 cm with an SUV at 1.1 and left upper lobe nodule was smaller at 0.5 cm with an SUV of 1.3. There was less rectal wall thickening with decreased SUV. I have reviewed this with Dr. Mendoza, who recommends continuing with 5-FU and Avastin. However, patient feels well and would prefer not to continue treatment at this time. He is grateful to be feeling better. He will be followed closely and understands that he should notify us if he develops any symptoms. 2. Thrombocytopenia, ongoing. Platelet count today is 88,000. He has had no issues with excessive bruising or bleeding. We will continue to monitor this. 3. Hypertension. Blood pressure today is 170/94. He was prescribed Lisinopril 10 mg daily but mentions that he has not been taking this for two to three months. I have asked him to follow up with Dr. Dodge to discus this. 4. Follow up with Dr. Mendoza in three months for continued care. CBC, CMP and CEA will be drawn before that time. MTDD
== END 2018-05-22 08:57 | disposition home or self-care (01) ==
LOC: SPU 10:01
PROVIDERS: ATTEND Internal Medicine Hematology
DX: Z51.11 Encounter for antineoplastic chemotherapy (principal); C20 Malignant neoplasm of rectum; I10 Essential (primary) hypertension; C78.02 Secondary malignant neoplasm of left lung; C78.01 Secondary malignant neoplasm of right lung; Z87.891 Personal history of nicotine dependence; D69.59 Other secondary thrombocytopenia; Z23 Encounter for immunization; Z92.21 Personal history of antineoplastic chemotherapy
CPT/HCPCS: 36415; 36591; 81001; 82378; 85025; 85027; 96366; 96367; 96372; 96375; 96413; 96416; G0008; G0463; J0640; J1100; J1642; J2469; J2505; J7040; J7050; J7060; J9035; Q2037; 82040; 82247; 82310; 82374; 82435; 82565; 82947; 84075; 84132; 84155; 84295; 84450; 84460; 84520; 90674; 99212

== ENCOUNTER 2018-07-26 08:30 | Outpatient (RCR) | payer MEDICARE ==
[~2018-07-26 08:30] MED LIST changes: -ALTEPLASE RECOMB 2 MG VIAL IVP PRN; -BEVACIZUMAB IVPB ONE; -BEVACIZUMAB IVPB PRN; -D5W IV ONE; -D5W IV PRN; -DEXAMETHASONE SOD PHOS 10MG/ML IVP ONE; -DEXAMETHASONE SOD(*) 10MG/ML 10 MG in NS(*) 0.9% 50 ML BAG 50 ML IVP PRN; -DEXTROSE 5%(*) 100 ML BAG 100 ML IVPB PRN; -FLUOROURACIL IV ONE; -FLUOROURACIL IV PRN; -INFLUENZA VIRUS VAC 0.5ML SYR IM ONLY ONE; -LEUCOVORIN CAL IV ONE; -LEUCOVORIN CAL IV PRN; -NS 0.9% IV ONE; -NS 0.9% IV PRN; -NS 0.9% IVPB ONE; -NS 0.9% IVPB PRN; -NS(*) 0.9% 100 ML BAG 100 ML IVPB PRN; -PEGFILGRASTIM 6 MG/0.6 ML SYR SUBQ ONE; -PEGFILGRASTIM 6 MG/0.6 ML SYR SUBQ PRN; -WATER FOR INJ,STERILE 20 ML IVP PRN
[2018-07-26 08:54] VITALS: BP 168/83
[2018-07-26 08:59] LABS: PLATELET COUNT, AUTOMATED 80 K/uL (150-450)
--- NOTE | 2018-07-26 11:54 | [facility] ONCOLOGY NOTE ---
EVENT DATE: July 26, 2018 DIAGNOSES 1. Stage IV colorectal cancer. 2. Pulmonary metastasis involving both lungs. 3. Hypertension. CHIEF COMPLAINT Patient is here today for followup of his metastatic colon cancer. ONCOLOGY HISTORY Patient is an 78-year-old [place] male who presented with rectal bleeding and lower abdominal pain lately and patient was planned to have a colonoscopy done by Dr. Ceballos, but patient had an issue with emergency in [facility] so he left the [facility] without having the colonoscopy done here in [place]. But he did a colonoscopy there in [facility], and the colonoscopy was done on August 17, 2017 which showed four polyps in the ascending colon and one polyp in the hepatic flexure, and all came back positive for tubular adenoma. There was a mass at the rectosigmoid junction and the biopsy of this mass came back positive for moderately differentiated adenocarcinoma. After he returned back from [facility], patient visited with Dr. Ceballos, who requested a PET/CT scan which was done on September 06, 2017, and the PET/CT scan showed numerous metabolically active parenchymal lung metastases throughout both lungs. There was also irregular locally invasive rectal tumor associated with internal iliac and perirectal lymphadenopathy. The largest circumferential rectal mass demonstrated SUV of 10.8 and left-sided dominant araceli metastasis demonstrated SUV of 5.5. There is no definite hepatic metastasis. Patient had biopsy of the rectal mass by Dr. Ceballos on September 13, 2017, and the pathology came back positive for invasive colonic adenocarcinoma. Pathological markers with NRAS, KRAS, BRAF and microsatellite instability high are still pending. Patient started treatment with FOLFOX on October 01, 2017. Patient completed 12 courses of chemotherapy on March 25, 2018, with omission of oxaliplatin in the last few cycles of chemotherapy. HISTORY OF PRESENT ILLNESS The patient is here today for followup of his metastatic colon cancer, status post chemotherapy. He is complaining of some cough and shortness of breath. He is weak, tired and fatigued but other than he is feeling much better currently. PAST MEDICAL HISTORY Significant for hypertension. PAST SURGICAL HISTORY Insignificant. FAMILY HISTORY Sister with breast cancer. SOCIAL HISTORY Patient is with two children. 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 He quit smoking 20-30 years ago after less than one pack a day for about 10 years. He drinks about three to four beers at least per week. Denies any abuse of illicit drugs. CURRENT MEDICATIONS 1. Anusol 25 mg suppository b.i.d. 2. Colace 100 mg daily. 3. Lisinopril 10 mg daily. ALLERGIES NO KNOWN DRUG ALLERGIES, REVIEW OF SYSTEMS CONSTITUTIONAL: No appetite or weight change. No fever, chills or sweating. No recent infection. HEENT: Ears: No tinnitus or hearing problem. Nose: He has some nasal discharge and epistaxis. Throat: No sore throat or mouth ulcers. Eyes: No diplopia or visual changes. RESPIRATORY: He has dry cough and shortness of breath. CARDIOVASCULAR: No chest pain, orthopnea, or paroxysmal nocturnal dyspnea (PND). No edema. No palpitations. GASTROINTESTINAL: No nausea or vomiting. No diarrhea or constipation. No change in bowel movements. No heartburn or swallowing difficulties. No abdominal pain. No jaundice. No hematemesis, melena or rectal bleeding. GENITOURINARY: No hematuria or dysuria. MUSCULOSKELETAL: No pain in the muscles, joints or bones. NEUROLOGICAL: His neuropathy is getting better after taking oxaliplatin off his treatment.. HEMATOLOGIC/LYMPHATIC: He is weak, tired and fatigued. SKIN: His skin pigmentation is also getting better. PSYCHIATRIC: No anxiety or depression. PHYSICAL EXAMINATION GENERAL: Looks stable. Well-developed, well-nourished, and in no acute distress. VITAL SIGNS: Blood pressure 168/83, pulse 69 per minute, respirations 16 per minute, temperature 98.6, pulse oximetry 92% on room air. HEENT: Head: Atraumatic. No sinus tenderness to palpation. Eyes: No icterus or conjunctivitis. Mouth and throat: No oral thrush or mucositis. NECK: Supple. No cervical or supraclavicular lymphadenopathy. LUNGS: Clear to auscultation and percussion bilaterally. HEART: Regular rate and rhythm. No gallops, murmurs, clicks or rubs. ABDOMEN: Soft and lax. No tenderness. No hepatosplenomegaly. No masses. EXTREMITIES: No cyanosis, clubbing or edema. LYMPHATICS: No peripheral lymphadenopathy. NEUROLOGICAL: Conscious, alert and oriented times three. No focal motor or sensory deficits. PSYCHIATRIC: Mood and affect appear normal. SKIN: No skin rash, bruise or purpuric eruption. DIAGNOSTIC DATA CBC showed white count of 6.4, hemoglobin 17.2, hematocrit 52.2, platelet 80,000. Chem panel is totally normal except blood sugar 131 and total bilirubin 2.3. His CEA is pending but his last CEA was mildly elevated at 3.2. ASSESSMENT 1. 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 Patient had a colonoscopy done in [facility] on August 12, 2017, and four polyps from the ascending colon and one polyp from the hepatic flexure all came back positive for tubular adenoma. There was a mass at the rectosigmoid junction and biopsy of that mass came back positive for moderately differentiated adenocarcinoma. PET/CT scan done September 06, 2017, did reveal the presence of numerous metabolically active parenchymal metastases throughout the lungs. An irregular locally invasive colorectal tumor associated with internal iliac and perirectal lymphadenopathy was also noted. There was no hepatic metastasis. Patient has been seen by Dr. Ceballos, who placed a central port and did a colonoscopy and biopsy of the rectal mass done September 10, 2017. Pathology came back positive for invasive colonic adenocarcinoma. Pathological markers with KRAS, NRAS, BRAF and microsatellite instability high were done and came back negative. Prechemotherapy CEA was 3.5. Patient received 12 courses of chemotherapy initially with FOLFOX, started on October 01, 2017 and completed on March 25, 2018. He finished only 8 cycles of FOLFOX and the last 4 cycles were with Avastin and 5-FU leucovorin. CEA dropped from 3.6 to 2.7 and currently it was 3.2 but the level for today is pending. If there is a jump in the CEA, I am planning to re-scan the patient again. He had PET CT scan done after treatment on April 24, 2018, which actually showed improved size and activity of the pulmonary lesions. The rectal wall thickening is much less and the SUV also decreased. I am planning to see the patient in three months if his tumor marker is stable but if it is rising then we will consider re-staging and we will see the patient after that. 2. Chemotherapy-induced thrombocytopenia. Current platelet count 80,000. We will continue to monitor. 3. Fatigue, continued blastic in nature. We will continue to monitor. PLAN 1. Continue followup. 2. Patient to return in three months with CBC, chem panel, CEA. 3. Consider seeing the patient earlier if his CEA is rising. 4. Patient to contact us for any new concerns or complaints. MTDD
== END 2018-10-23 ==
LOC: SPU 08:30
PROVIDERS: ATTEND Internal Medicine Hematology
DX: C19 Malignant neoplasm of rectosigmoid junction (principal); C78.02 Secondary malignant neoplasm of left lung; C78.01 Secondary malignant neoplasm of right lung; Z92.21 Personal history of antineoplastic chemotherapy; G62.0 Drug-induced polyneuropathy; T45.1X5A Adverse effect of antineoplastic and immunosuppressive drugs, initial encounter; R53.83 Other fatigue; R53.1 Weakness; I10 Essential (primary) hypertension
CPT/HCPCS: 36415; 82378; 85025; G0463; 82040; 82247; 82310; 82374; 82435; 82565; 82947; 84075; 84132; 84155; 84295; 84450; 84460; 84520; 99212